=== PATIENT | female | born 1945 | race Caucasian/White ===

== ENCOUNTER → 2016-09-17 | Outpatient (CLI) | payer BC ==
[~2016-09-17] MED LIST: ALBU0.08 INH; ALBUAER19 INH; ASCA500 PO; B-COCAP2 PO; CHOL1000 PO; CLC100 PO; CLX20 PO; CRDCD300 PO; GABA1CAP5 PO; LEVO88TA3 PO; LOSA50TA6 PO; MAGN1TAB16 PO; MULT1CHW42 PO; NORT10CA2 PO; PRLSR20 PO; SOLI10TA2 PO; TRAM-10 PO; XNX25 PO
--- NOTE | 2016-09-17 11:47 | DIAGNOSTIC IMAGING REPORT ---
RENAL ULTRASOUND CLINICAL HISTORY: Hydronephrosis. COMPARISON STUDY: CT of the abdomen and pelvis July 31, 2016. TECHNIQUE: Sonography of the kidneys and the urinary bladder was performed. FINDINGS: The right kidney measures 10.2 x 5.6 x 5.1 cm and the left measures 9.6 x 4.5 x 5.2 cm. There is no hydronephrosis. Renal echogenicity, size and cortical thickness are normal. Neither ureteral jet was identified. The bladder was unremarkable. IMPRESSION: 1. Normal sonographic appearance of the kidneys. No hydronephrosis. 2. Nonvisualization of the ureteral jets. Otherwise, normal appearance of the bladder. Electronically signed by: Rodrigo Colon M.D. 09/17/2016 11:45 AM Dictated Date/Time: 09/17/2016 11:43 AM
== END | disposition home or self-care (01) ==
LOC: C.ULTR 10:43
PROVIDERS: ATTEND Urology
DX: N13.30 Unspecified hydronephrosis (principal)

== ENCOUNTER → 2016-10-30 | Outpatient (CLI) | payer BC ==
[~2016-10-30] MED LIST changes: +OPTIRAY 320 IV PRN
--- NOTE | 2016-10-30 10:00 | DIAGNOSTIC IMAGING REPORT ---
CT ABD/PELVIS IV AND ORAL CONT CLINICAL HISTORY: Ovarian carcinoma. COMPARISON STUDY: 07/31/2016 TECHNIQUE: Following the IV administration of 115 mL of Optiray-320, CT scan of the abdomen and pelvis was performed from the lung bases to the proximal femurs. Images are reviewed in the axial, sagittal, and coronal planes. IV contrast was administered without complication. CT DOSE: FINDINGS: Lower chest: There are bilateral clustered pulmonary nodules. These are most numerous within left lower lobe. The largest measures 14.5 mm. These have been described on prior studies. Liver: The contrast-enhanced liver is normal in size, contour, and attenuation. There is no intrahepatic biliary ductal dilatation. The hepatic veins and portal veins are patent. The previous identified serosal nodule is no longer visualized. Gallbladder: Unremarkable. Spleen: Normal in size and attenuation. Pancreas: Unremarkable. Adrenal glands: Unremarkable. Kidneys: There is a 7 mm right renal cyst. Bowel: There are no transition zones indicate bowel obstruction. There is no evidence of acute diverticulitis. There are no findings to indicate acute appendicitis. There is nonspecific thickening of the gastric cardia. The discrete gastric cardia nodule previously described is difficult to discern. Peritoneum: There is no intraperitoneal free air or abdominal ascites. There is a fat-containing ventral hernia. There is been interval decrease in the size of the scattered peritoneal nodules. Vasculature: The abdominal aorta is normal in course and caliber. Adenopathy: None. Pelvic viscera: There is interval decrease in the size of the cystic right adnexal lesion which currently measures 25 mm. Skeletal structures: No destructive osseous lesions are seen. IMPRESSION: 1. Interval improvement when compared the preceding study 2. Near complete resolution of the previously described small peritoneal nodules 3. Interval resolution of the serosal hepatic implant 4. Interval decrease in the size of the cystic right adnexal lesion which currently measures 25 mm 5. Fat-containing ventral hernia 6. Multiple pulmonary nodules are again visualized. These will be described separately in a thoracic CT report. Electronically signed by: Dom Burgos M.D. 10/30/2016 9:59 AM Dictated Date/Time: 10/30/2016 9:48 AM
--- NOTE | 2016-10-30 10:23 | DIAGNOSTIC IMAGING REPORT ---
CT SCAN OF THE CHEST WITH IV CONTRAST CLINICAL HISTORY: Ovarian cancer follow-up. COMPARISON STUDY: Chest CT scans dated 07/31/2016, 04/08/2015, and 01/11/2007. TECHNIQUE: Following the IV administration of 93 of Optiray 320, CT scan of the chest is performed from the thoracic inlet to the upper abdomen. Images are reviewed in the axial, sagittal, and coronal planes. IV contrast was administered without complication. Automated dose control exposure was utilized. CT DOSE: 488.48 mGy.cm FINDINGS: Thyroid: Imaged portions of the thyroid gland are normal in size and attenuation. Thoracic aorta: There is mild atherosclerotic calcification of the thoracic aorta, which is normal in caliber and demonstrates standard arch 3-vessel anatomy. No dissection is seen. Pulmonary vasculature: The pulmonary trunk is normal in caliber. There are no filling defects identified in the central pulmonary vessels to indicate pulmonary was. Note that this examination was not protocoled for evaluation of the pulmonary arteries. Heart: The heart appears mildly enlarged and is without pericardial effusion. There are scattered coronary artery calcifications. Lungs and pleural spaces: Mild emphysema is noted. There is no airspace consolidation typical for pneumonia. Trace right pleural fluid is observed. Findings suggest previous right-sided pulmonary resection. Scattered calcified granulomas are identified. The trachea and central airways are clear. There is a 1.4 cm left lower lobe nodule seen image #127. This has been present dating back to 2006 and is of doubtful significance. There are numerous additional pulmonary nodules scattered throughout both lungs. A 9 mm left upper lobe nodule is seen on image #111 , a cluster of nodules in the left lower lobe as seen on image #174, and more than 10 additional smaller nodules are present throughout both lungs. Some of these demonstrate a peripheral branching pattern. These are similar appearance to 07/31/2016 examination. Some of these are new from 2007, while others have decreased in size from prior examination. Mediastinum: There is no mediastinal lymphadenopathy. Sonal: Clear. Axillae: There is no axillary lymphadenopathy. Upper abdomen: There is a fat-containing supraumbilical hernia. A small hiatal hernia is noted. A 2.0 cm nodule is again seen in the gastric cardia on image #241. This is less apparent than on the prior examinations due to decompression of the proximal stomach. Bony thorax: The skeletal structures are osteopenic. Degenerative changes noted throughout the thoracic spine. No lytic or blastic lesions are identified. There are mild chronic compression deformities of T1, T5, T7, and L1. IMPRESSION: 1. There has been no significant change in the appearance of numerous waxing and waning pulmonary nodules which have been seen over several examinations dating back to 2006. Several of these lesions demonstrate a branching appearance, and the appearance suggest a chronic infectious/inflammatory process. Metastatic disease is considered less likely. 2. There is no airspace consolidation typical for pneumonia. Trace pleural fluid is noted at the right lung base. 3. Mild emphysema is identified. Postoperative change is suggested in the right lung. Correlation with the patient's surgical history be required. 4. A 2.0 cm nodule in the gastric cardia is likely unchanged. 5. Additional changes as above. Electronically signed by: Tez Putnam M.D. 10/30/2016 10:22 AM Dictated Date/Time: 10/30/2016 9:59 AM
== END | disposition home or self-care (01) ==
LOC: C.CTS 08:36
PROVIDERS: ATTEND Nurse Practitioner
DX: C56.1 Malignant neoplasm of right ovary (principal); R19.09 Other intra-abdominal and pelvic swelling, mass and lump; K43.9 Ventral hernia without obstruction or gangrene; R91.8 Other nonspecific abnormal finding of lung field; K31.89 Other diseases of stomach and duodenum

== ENCOUNTER → 2016-11-02 | Outpatient (CLI) | payer BC ==
[~2016-11-02] MED LIST changes: -OPTIRAY 320 IV PRN
--- NOTE | 2016-11-02 18:36 | ECHOCARDIOGRAM REPORT ---
*NOTICE TO RECEIVING [employer] This information is strictly Confidential and protected under [place] law. [place] law prohibits you from making any further disclosure of this information unless further disclosure is expressly permitted by the written consent of the person to whom it pertains or is authorized by law. A general authorization for the release of medical or other information is not sufficient for this purpose. Hospital accepts no responsibility if the information is made available to any other person, INCLUDING THE PATIENT. Interpretation Summary * Name: RADHA TALBERT Study Date: 11/02/2016 12:58 PM BP: 190/96 mmHg * Patient Location: [facility] HR: 78 * : 1945 (M/d/yyyy) Gender: Female Height: 61 in * Age: 71 yrs Ethnicity: CA Weight: 140 lb * Ordering Physician: Mitch Palafox * Referring Physician: Mitch Palafox D.O. * Performed By: Parvin Capm RDCS * * Reason For Study: NEOPLASM, OVARIAN CA * BSA: 1.6 m2 * History: OVARIAN CA * -- Conclusions -- * 1. Normal left ventricular size and systolic function. EF 55%. No regional wall motion abnormalities. No left ventricular hypertrophy. Type 1 diastolic dysfunction. * 2. Sclerotic aortic valve without significant stenosis. * 3. No significant change from prior study on 05/16/2016. Procedure Details * A complete two-dimensional transthoracic echocardiogram was performed (2D, M-mode, Doppler and color flow Doppler). Left Ventricle * Normal left ventricular size and systolic function. EF 55%. No regional wall motion abnormalities. No left ventricular hypertrophy. Type 1 diastolic dysfunction. Right Ventricle * The right ventricle is normal in size and function. * The right ventricular systolic function is normal as assessed by tricuspid annular plane systolic excursion (TAPSE) (normal >1.5 cm). Atria * The left atrial size is normal. * Right atrial size is normal. * There is no evidence of atrial septal defect, but resolution does not allow assessment for a patent foramen ovale. Mitral Valve * The mitral valve leaflets appear normal. There is no evidence of stenosis, fluttering, or prolapse. * There is mild to moderate mitral annular calcification. * There is no mitral regurgitation noted. Tricuspid Valve * The tricuspid valve is normal in structure and function. * There is no tricuspid stenosis. * Significant tricuspid regurgitation is absent. Aortic Valve * The aortic valve is trileaflet. * Sclerotic aortic valve without significant stenosis. * No aortic regurgitation is present. Pulmonic Valve * The pulmonary valve is inadequately visualized, but the Doppler data is adequate for interpretation. * There is no pulmonic valvular stenosis. * There is no significant pulmonary regurgitation. Great Vessels * The aortic root is normal size. * Aortic arch of normal dimension. Pericardium/Pleural * There is no pericardial effusion. Great Vessels * Normal inferior vena cava size and collapsability with sniff indicates a normal right atrial pressure of 3 mmHg Left Ventricular Diastolic Function * Grade I diastolic dysfunction, (abnormal relaxation pattern). MMode 2D Measurements and Calculations IVSd 0.90 cm IVSs 1.3 cm LVIDd 5.0 cm LVIDs 3.5 cm LVPWd 1.0 cm LVPWs 1.7 cm IVS/LVPW 0.87 FS 29.8 % EDV(Teich) 118.6 ml ESV(Teich) 51.4 ml EF(Teich) 56.7 % EDV(cubed) 125.5 ml ESV(cubed) 43.4 ml EF(cubed) 65.4 % % IVS thick 40.4 % % LVPW thick 61.8 % LV mass(C)d 175.3 grams LV mass(C)dI 108.0 grams/m\S\2 LV mass(C)s 189.1 grams LV mass(C)sI 116.5 grams/m\S\2 SV(Teich) 67.3 ml SI(Teich) 41.4 ml/m\S\2 SV(cubed) 82.1 ml SI(cubed) 50.6 ml/m\S\2 Ao root diam 3.0 cm Ao root area 6.9 cm\S\2 LA dimension 3.3 cm LA/Ao 1.1 LVAd ap4 29.3 cm\S\2 LVLd ap4 7.5 cm EDV(MOD-sp4) 96.3 ml EDV(sp4-el) 97.5 ml LVAs ap4 18.7 cm\S\2 LVLs ap4 6.8 cm ESV(MOD-sp4) 45.8 ml ESV(sp4-el) 43.7 ml EF(MOD-sp4) 52.5 % EF(sp4-el) 55.2 % LVAd ap2 25.5 cm\S\2 LVLd ap2 7.1 cm EDV(MOD-sp2) 76.1 ml EDV(sp2-el) 77.5 ml LVAs ap2 16.1 cm\S\2 LVLs ap2 6.3 cm ESV(MOD-sp2) 35.7 ml ESV(sp2-el) 34.9 ml EF(MOD-sp2) 53.1 % EF(sp2-el) 55.0 % LVLd %diff -4.33 % EDV(MOD-bp) 91.1 ml LVLs %diff -9.90 % ESV(MOD-bp) 42.0 ml EF(MOD-bp) 53.9 % SV(MOD-sp4) 50.5 ml SI(MOD-sp4) 31.1 ml/m\S\2 SV(MOD-sp2) 40.4 ml SI(MOD-sp2) 24.9 ml/m\S\2 SV(MOD-bp) 49.1 ml SI(MOD-bp) 30.3 ml/m\S\2 SV(sp4-el) 53.8 ml SI(sp4-el) 33.1 ml/m\S\2 SV(sp2-el) 42.6 ml SI(sp2-el) 26.2 ml/m\S\2 Doppler Measurements and Calculations MV E max jorge 75.6 cm/sec MV A max jorge 118.9 cm/sec MV E/A 0.64 MV dec time 0.27 sec Ao V2 max 178.9 cm/sec Ao max PG 12.8 mmHg Ao max PG (full) 9.1 mmHg Ao V2 mean 108.8 cm/sec Ao mean PG 5.6 mmHg Ao mean PG (full) 3.8 mmHg Ao V2 VTI 38.8 cm LV V1 max PG 3.7 mmHg LV V1 mean PG 1.8 mmHg LV V1 max 95.8 cm/sec LV V1 mean 60.3 cm/sec LV V1 VTI 23.2 cm SV(Ao) 266.5 ml SI(Ao) 164.2 ml/m\S\2 TV E max jorge 41.4 cm/sec
== END | disposition home or self-care (01) ==
LOC: C.CPL 12:16
PROVIDERS: ATTEND Internal Medicine Hematology & Oncology
DX: C56.1 Malignant neoplasm of right ovary (principal); Z11.59 Encounter for screening for other viral diseases

== ENCOUNTER → 2016-11-02 | Outpatient (CLI) | payer BC | END | disposition home or self-care (01) | LOC: C.LAB 17:11 | PROVIDERS: ATTEND Family Medicine | DX: Z11.59 Encounter for screening for other viral diseases (principal) ==

== ENCOUNTER → 2016-11-12 | Outpatient (CLI) | payer BC ==
--- NOTE | 2016-11-12 16:38 | MAMMOGRAPHY REPORT ---
BILATERAL DIGITAL SCREENING MAMMOGRAM WITH CAD: 11/12/2016 CLINICAL HISTORY: Routine screening. Patient has no complaints. TECHNIQUE: Bilateral CC and MLO views were obtained. Current study was also evaluated with a Comput er Aided Detection (CAD) system. COMPARISON: Comparison is made to exams dated: 09/19/2015 mammogram, 09/16/2014 mammogram, 09/08/2012 ma mmogram, 09/06/2011 mammogram, 09/15/2013 mammogram, and 09/03/2011 mammogram - [facility] nter. BREAST COMPOSITION: The tissue of both breasts is heterogeneously dense, which may obscure small ma sses. FINDINGS: There are mild vascular calcifications in the breasts. A stable metallic biopsy marker i n the central left breast. Stable asymmetry in the central left breast and in the medial left breas t. Punctate microcalcifications scattered bilaterally are stable compared to prior exams. No new john spicious mass, architectural distortion or cluster of microcalcifications is seen. IMPRESSION: ACR BI-RADS CATEGORY 2: BENIGN There is no mammographic evidence of malignancy. A 1 year screening mammogram is recommended. The p atient will receive written notification of the results. Approximately 10% of breast cancers are not detected with mammography. A negative mammographic repor t should not delay biopsy if a clinically suggestive mass is present. Brenda Garzon M.D. ay/:11/12/2016 16:21:13 Stores Clerk: Wandy PATEL)(Malcolm), [facility] letter sent: Normal 1/2 BI-RADS Code: ACR BI-RADS Category 2: Benign
== END | disposition home or self-care (01) ==
LOC: C.MAMM 11:24
PROVIDERS: ATTEND Obstetrics & Gynecology
DX: Z12.31 Encounter for screening mammogram for malignant neoplasm of breast (principal)

== ENCOUNTER → 2016-12-03 | Outpatient (CLI) | payer BC ==
[2016-12-03 14:40] LABS: HEMATOCRIT 40.6 % (37-47)
[2016-12-03 15:24] LABS: ALT/SGPT 21 U/L (12-78); AST/SGOT 13 U/L (15-37); BLOOD UREA NITROGEN 13 mg/dl (7-18); BUN/CREATININE RATIO 16.7 (10-20); CALCIUM 9.2 mg/dl (8.5-10.1); CARBON DIOXIDE 31 mmol/L (21-32); CHLORIDE 105 mmol/L (98-107); GLUCOSE 91 mg/dl (70-99); POTASSIUM 4.1 mmol/L (3.5-5.1); SODIUM 141 mmol/L (136-145)
[2016-12-03 15:37] LABS: ALB/GLOB RATIO 0.9 (0.9-2); ALKALINE PHOSPHATASE 75 U/L (45-117); THYROID STIMULATING HORMONE 0.764 uIu/ml (0.300-4.500)
[2016-12-03 17:35] LABS: RATIO 185.2 mcg/mg (0-30.0)
[2016-12-04 06:39] LABS: ESTIMATED AVERAGE GLUCOSE 97 mg/dl; HA1C FLAG Normal (Normal)
== END | disposition home or self-care (01) ==
LOC: C.LAB1850 12:49
PROVIDERS: ATTEND Nurse Practitioner Adult Health
DX: R73.01 Impaired fasting glucose (principal); R73.09 Other abnormal glucose; E03.9 Hypothyroidism, unspecified

== ENCOUNTER → 2016-12-24 | Outpatient (CLI) | payer BC ==
[~2016-12-24] MED LIST changes: +OPTIRAY 320 IV PRN
--- NOTE | 2016-12-24 14:27 | DIAGNOSTIC IMAGING REPORT ---
CHEST CT WITH CONTRAST CT DOSE: 745.36 mGycm HISTORY: Ovarian carcinoma OVARIAN CA F/U SCAN TECHNIQUE: Multiaxial CT images of the chest were performed following the intravenous administration of contrast. COMPARISON: None. FINDINGS: Multiple small parenchymal nodules unchanged from the prior study. No new or interval finding. Hilar and mediastinal regions are unremarkable. Limited evaluation the upper abdomen is unremarkable. IMPRESSION: Stable examination including diffuse parenchymal nodularity. No new or interval finding. Electronically signed by: Trent Goins M.D. 12/24/2016 2:25 PM Dictated Date/Time: 12/24/2016 2:21 PM
--- NOTE | 2016-12-24 14:37 | DIAGNOSTIC IMAGING REPORT ---
CT ABD/PELVIS IV AND ORAL CONT CLINICAL HISTORY: Ovarian carcinoma COMPARISON STUDY: 10/30/2016 TECHNIQUE: Following the IV administration of 119 mL of Optiray-320, CT scan of the abdomen and pelvis was performed from the lung bases to the proximal femurs. Images are reviewed in the axial, sagittal, and coronal planes. IV contrast was administered without complication. CT DOSE: FINDINGS: Lower chest: There are areas of clustered tree-in-bud nodularity within both lower lobes, similar to the preceding study. A postinflammatory etiology is favored. Liver: The contrast-enhanced liver is normal in size, contour, and attenuation. There is no intrahepatic biliary ductal dilatation. The hepatic veins and portal veins are patent. Gallbladder: Unremarkable. Spleen: Normal in size and attenuation. Pancreas: Unremarkable. Adrenal glands: Unremarkable. Kidneys: There are multiple renal hypodensities measuring up to 6 mm in diameter. These likely represent cysts. Bowel: There are no transition zones indicate bowel obstruction. There is no evidence of acute appendicitis. There is no evidence of acute diverticulitis. Peritoneum: There is no ascites. There is no free air. There is a fat-containing umbilical hernia. There is mild infiltration and nodularity of the omentum, suspicious for subtle medial blastic involvement. Vasculature: The abdominal aorta is normal in course and caliber. Adenopathy: None. Pelvic viscera: There is a stable 26 mm right adnexal cystic lesion. Skeletal structures: No destructive osseous lesions are seen. IMPRESSION: 1. Persistent clustered lower lobe pulmonary tree-in-bud nodularity, likely postinflammatory 2. Stable 25 mm cystic right adnexal lesion 3. Fat-containing ventral hernia 4. Subtle infiltration and nodularity of the omentum/anterior peritoneum. The findings are consistent with the patient's known history of peritoneal carcinomatosis. The findings are relatively stable. Electronically signed by: Dom Burgos M.D. 12/24/2016 2:36 PM Dictated Date/Time: 12/24/2016 2:28 PM
== END | disposition home or self-care (01) ==
LOC: C.CTS 13:27
PROVIDERS: ATTEND Internal Medicine Hematology & Oncology
DX: C56.1 Malignant neoplasm of right ovary (principal)

== ENCOUNTER → 2017-02-26 | Outpatient (CLI) | payer BC ==
[~2017-02-26] MED LIST changes: -OPTIRAY 320 IV PRN
--- NOTE | 2017-02-26 12:43 | DIAGNOSTIC IMAGING REPORT ---
(CHEST) THORAX WITH HISTORY: 71 years Female OVARIAN cancer follow-up exam. Restaging. COMPARISON: CT chest 12/24/2016, 10/30/2016, 01/11/2007 TECHNIQUE: Multiple axial CT images of the chest were obtained following the intravenous administration of 93 mL Optiray 320. FINDINGS: Thyroid is homogeneous. No new adenopathy of the thorax is seen. Heart is normal in size. Thoracic aorta appears normal in course and caliber. There is no pneumothorax or pleural effusion. Evaluation of the lung bases is limited secondary to respiratory motion. There is unchanged right hemidiaphragmatic elevation. Noncalcified pulmonary nodules throughout the bilateral lungs and multilobar distribution are again seen. For example, lobulated pulmonary nodule of the superior segment left lower lobe measures 1.2 x 1.4 cm, previously 1.4 x 1.1 cm. 9 mm nodule left upper lobe previously measured 9 mm. Several of these nodules are branching with associated tree-in-bud nodularity suggesting endobronchial disease. There are postsurgical changes of the right lung. Mild centrilobular emphysema noted. The proximal bronchial tree is patent. No new pulmonary nodules are identified. Imaged upper abdominal structures are within normal limits. Soft tissues are unremarkable. There is unchanged patchy bony sclerosis involving several mid thoracic levels which appears unchanged. Compression deformity of L1 is unchanged. IMPRESSION: 1. Stable exam with redemonstration of multiple noncalcified pulmonary nodules in a multilobar distribution bilaterally. Several of these pulmonary nodules are again noted to demonstrate branching morphology with areas of tree-in-bud nodularity suggesting endobronchial spread of disease/bronchiolitis. Underlying metastatic disease would also be in the differential. 2. No new adenopathy or pulmonary nodules identified. 3. Additional incidental findings as above. The above report was generated using voice recognition software. It may contain grammatical, syntax or spelling errors. Electronically signed by: Braden Millan M.D. 02/26/2017 12:42 PM Dictated Date/Time: 02/26/2017 12:32 PM
--- NOTE | 2017-02-26 12:59 | DIAGNOSTIC IMAGING REPORT ---
ABD/PELVIS IV AND ORAL CONT HISTORY: 71 years Female ovarian cancer follow-up study. This is for restaging. COMPARISON: CT abdomen and pelvis 12/24/2016 TECHNIQUE: Multiple axial CT images of the abdomen and pelvis were obtained following the intravenous administration of 93 mL Optiray 320. Oral contrast was also administered. FINDINGS: Areas of scattered tree-in-bud nodularity and noncalcified pulmonary nodules within the lung bases are again seen suggesting infectious bronchiolitis. Inferior cardiac chambers are unremarkable. There is no pneumoperitoneum. Liver, spleen, gallbladder, pancreas and adrenal glands are within normal limits. Low attenuating lesions of the renal parenchyma measuring up to 6 mm on the right to small to characterize however suggests cysts and appear unchanged. No renal calculi or hydronephrosis. Urinary bladder is unremarkable. Uterus is age-appropriate. Cystic lesion of the right adnexum is seen, 2.4 x 2.2 cm which is unchanged. There is trace free pelvic fluid noted. Abdominal aorta is normal in course and caliber with mild/moderate atherosclerotic plaquing. There is no bulky retroperitoneal adenopathy identified. There is wall thickening of the distal esophagus with nodularity in the region of the gastric cardia, unchanged. There is no bowel obstruction. There is redemonstration of nodularity of the omentum/peritoneum, notably within the left upper and central abdomen which appears progressed from comparison study dated 12/24/2016 with scattered areas of loculated ascites within the upper abdomen. Fat containing supraumbilical ventral abdominal wall hernia is seen with diastases of 3.8 cm. There is diastases recti. Vertebral body sclerosis involving several midthoracic levels again seen with unchanged compression deformity of the L1 vertebral body. Severe facet arthropathy seen at several levels. IMPRESSION: 1. Progression of peritoneal and omental carcinomatosis within the upper abdomen now with areas of minimal loculated ascites. 2. Unchanged circumferential wall thickening of the distal esophagus with nodularity of the gastric cardia. This could be correlated with endoscopy if clinically indicated. 3. Fat filled supraumbilical ventral abdominal wall hernia. 4. Unchanged 2.4 cm cystic lesion of the right adnexum. 5. Tree-in-bud nodularity of the lung bases again seen suggesting bronchiolitis as discussed on comparison chest CT of same day. The above report was generated using voice recognition software. It may contain grammatical, syntax or spelling errors. Electronically signed by: Braden Millan M.D. 02/26/2017 12:58 PM Dictated Date/Time: 02/26/2017 12:48 PM
== END | disposition home or self-care (01) ==
LOC: C.CTS 11:39
PROVIDERS: ATTEND Internal Medicine Hematology & Oncology
DX: C56.1 Malignant neoplasm of right ovary (principal)

== ENCOUNTER → 2017-09-06 | Outpatient (CLI) | payer BC ==
[~2017-09-06] MED LIST changes: +OPTIRAY 320 IV PRN
--- NOTE | 2017-09-06 12:56 | DIAGNOSTIC IMAGING REPORT ---
CT SCAN OF THE CHEST WITH IV CONTRAST CLINICAL HISTORY: Ovarian cancer follow-up. COMPARISON STUDY: Chest CT scans dated 06/13/2017 and 01/11/2007. TECHNIQUE: Following the IV administration of 93 of Optiray 320, CT scan of the chest is performed from the thoracic inlet to the upper abdomen. Images are reviewed in the axial, sagittal, and coronal planes. IV contrast was administered without complication. Automated dose control exposure was utilized. CT DOSE: 960.87 mGy.cm FINDINGS: Thyroid: Imaged portions of the thyroid gland are normal in size and attenuation. Thoracic aorta: There is mild atherosclerotic calcification of the thoracic aorta, which is normal in caliber and demonstrates standard arch 3-vessel anatomy. No dissection is seen. Pulmonary vasculature: The pulmonary trunk is normal in caliber. There are no filling defects identified in the central pulmonary vessels to indicate pulmonary was. Note that this examination was not protocoled for evaluation of the pulmonary arteries. Heart: The heart is top normal in size and there is trace pericardial effusion. There are scattered coronary artery calcifications. Lungs and pleural spaces: Mild emphysema is noted. There is no airspace consolidation typical for pneumonia. There are trace pleural effusions. Findings suggest previous right-sided pulmonary resection. Scattered calcified granulomas are identified. The trachea and central airways are clear. Numerous (greater than 20) noncalcified pulmonary pulmonary nodules are overall similar appearance to 06/13/2017 examination. Several of these demonstrate a branching configuration. The largest is seen in the left lower lobe on image #110 and measures 1.5 cm. Mediastinum: There is no mediastinal lymphadenopathy. Sonal: Clear. Axillae: There is no axillary lymphadenopathy. Upper abdomen: A small hiatal hernia is noted. A 2.0 cm nodule is again seen in the gastric cardia on image #216. Upper abdominal ascites is noted. Peritoneal implants are seen below the left hemidiaphragm. Bony thorax: The skeletal structures are osteopenic. Degenerative change is noted throughout the thoracic spine. No lytic or blastic lesions are identified. There are mild chronic compression deformities of T1, T5, T7, and L1. IMPRESSION: 1. There has been no significant change in the appearance of numerous waxing and waning pulmonary nodules which have been seen over examinations dating back to 2006. Several of these lesions demonstrate a branching appearance, and the appearance suggest a chronic infectious/inflammatory process. Metastatic disease is considered less likely. 2. There is no airspace consolidation typical for pneumonia. Trace pleural effusions are identified. 3. Mild emphysema is identified. Postoperative change is suggested in the right lung. Correlation with the patient's surgical history be required. 4. A 2.0 cm nodule in the gastric cardia is unchanged. 5. Ascites is seen in the upper abdomen and there is evidence of peritoneal carcinomatosis. 6. Additional findings as above. Electronically signed by: Tez Putnam M.D. 09/06/2017 12:55 PM Dictated Date/Time: 09/06/2017 12:45 PM
--- NOTE | 2017-09-06 13:04 | DIAGNOSTIC IMAGING REPORT ---
ABD/PELVIS IV AND ORAL CONT CT DOSE: HISTORY: Ovarian carcinoma OVARIAN CA TECHNIQUE: Multiaxial CT images of the abdomen and pelvis were performed following the use of intravenous and oral contrast. A dose lowering technique was utilized adhering to the principles of ALARA. COMPARISON STUDY: 06/13/2017 FINDINGS: Potential progressive basilar pulmonary nodularity. Reference is made to CT chest for definitive comparison purposes. Interval development of and/or progressive perihepatic perisplenic and upper abdominal ascites. Moderately progressive carcinomatosis. Unchanging anterior ventral hernia with contained loop of bowel. This is a nonobstructive finding. Kidneys demonstrate several small cysts but are negative for hydronephrosis. Nonobstructive bowel pattern. Moderately progressive pelvic ascites. 3 cm right ovarian cyst. Slightly progressive metastatic mesenteric adenopathy. Stable hypodensity subdiaphragmatic region right hepatic lobe. Partial bladder prolapse unchanged in the prior study. IMPRESSION: 1. Findings suggestive of progressive metastatic disease throughout the abdomen and pelvis. 2. Moderately progressive volume of abdominal and pelvic ascites. 3. Moderately progressive peritoneal carcinomatosis and to a lesser extent adenopathy within the abdomen and pelvis. 4. Probable progressive basilar pulmonary nodularity The above report was generated using voice recognition software. It may contain grammatical, syntax or spelling errors. Electronically signed by: Trent Goins M.D. 09/06/2017 1:03 PM Dictated Date/Time: 09/06/2017 12:47 PM
== END | disposition home or self-care (01) ==
LOC: C.CTS 10:50
PROVIDERS: ATTEND Internal Medicine Hematology & Oncology
DX: C56.1 Malignant neoplasm of right ovary (principal); R18.8 Other ascites; C78.6 Secondary malignant neoplasm of retroperitoneum and peritoneum

== ENCOUNTER 2017-10-02 09:44 | Inpatient (IN) | payer BC, OTHER ==
[~2017-10-02] VITALS: Ht 154.9 cm; Wt 64.8 kg
[~2017-10-02 09:44] MED LIST changes: +GABA-1220 PO; -GABA1CAP5 PO; -OPTIRAY 320 IV PRN
[2017-10-02 09:53] VITALS: Ht 154.9 cm; Wt 64.8 kg
[2017-10-02] MEDS ORDERED: SODIUM CHLORIDE 0.9% 1000ML 1,000 ML IV STA ×2 (10:25)
[2017-10-02] MEDS ORDERED: POTA10PO PO (10:28)
[2017-10-02] MEDS ORDERED: NYSTOIN5 TOP (10:28)
[2017-10-02] MEDS ORDERED: TRAM-10 PO (10:28)
[2017-10-02] MEDS ORDERED: ALPR-411 PO (10:28)
[2017-10-02] MEDS ORDERED: VNTHFA/IN INH (10:28)
[2017-10-02] MEDS ORDERED: DILT-117 PO (10:28)
[2017-10-02] MEDS ORDERED: PRLSR20 PO (10:28)
[2017-10-02] MEDS ORDERED: CALC-348 PO (10:28)
[2017-10-02] MEDS ORDERED: DICL1GEL12 TOP (10:28)
[2017-10-02] MEDS ORDERED: B-COTAB18 PO (10:28)
[2017-10-02] MEDS ORDERED: MISCCAP80 PO (10:28)
[2017-10-02] MEDS ORDERED: SENN-61 PO (10:28)
[2017-10-02] MEDS ORDERED: DOCU-94 PO (10:28)
[2017-10-02] MEDS ORDERED: DTRSR/2 PO (10:28)
[2017-10-02] MEDS ORDERED: LOSA1TAB38 PO (10:28)
[2017-10-02] MEDS ORDERED: GABA-1220 PO (10:28)
[2017-10-02] MEDS ORDERED: INDA2.5T PO (10:28)
[2017-10-02] MEDS ORDERED: NORT10CA2 PO (10:28)
[2017-10-02] MEDS ORDERED: CITA20TA4 PO (10:28)
[2017-10-02] MEDS ORDERED: CHOL1000 PO (10:28)
[2017-10-02] MEDS ORDERED: OMEG10007 PO (10:28)
[2017-10-02] MEDS ORDERED: ASCO500T16 PO (10:28)
[2017-10-02] MEDS ORDERED: MAGNTAB10 PO (10:28)
[2017-10-02] MEDS ORDERED: LEVO88TA3 PO (10:28)
[2017-10-02] MEDS ORDERED: MULT-506 PO (10:28)
[2017-10-02] MEDS ORDERED: VITA1TAB12 PO (10:28)
[2017-10-02] MEDS ORDERED: ALBINS/ INH (10:28)
[2017-10-02] MEDS ORDERED: FLUT0.15 NAE (10:28)
[2017-10-02] MEDS ORDERED: TRMCR130WC TOP (10:31)
[2017-10-02] MEDS ORDERED: ONDA-63 PO (10:31)
[2017-10-02] MEDS ORDERED: DILT300C21 PO (10:31)
--- NOTE | 2017-10-02 10:37 | EMERGENCY ROOM VISIT NOTE ---
ED Visit Note First contact with patient: 10:00 Patient was seen by our PA/HOOD FITTER. I was involved in the patient's care and did evaluate the patient myself. I was involved in the care throughout the ER stay. The patient presents with concerns for constipation and/or a bowel obstruction. She does not really have pain, there has been no vomiting. She does feel somewhat bloated. Laboratory testing and imaging is currently pending.
[2017-10-02 11:39] LABS: BASO % 0.2 %; BASO ABS # 0.01 K/uL (0-0.2); EOS % 0.8 %; EOS ABS # 0.04 K/uL (0-0.5); HEMATOCRIT 29.1 % (37-47); HEMOGLOBIN 9.7 g/dL (12.0-16.0); IG# 0.02 K/uL (0.00-0.02); LYMPH % 10.8 %; LYMPH ABS # 0.51 K/uL (1.2-3.4); MEAN CELL VOLUME 92.4 fL (80-100); MEAN CORPUSCULAR HEMOGLOBIN 30.8 pg (25-34); MEAN CORPUSCULAR HGB CONC 33.3 g/dl (32-36); MONO % 2.5 %; MONO ABS # 0.12 K/uL (0.11-0.59); NEUT % 85.3 %; NEUT ABS # 4.02 K/uL (1.4-6.5); PLATELET COUNT 477 K/uL (130-400); RED CELL DISTRIBUTION WIDTH CV 14.5 % (11.5-14.5); RED CELL DISTRIBUTION WIDTH SD 47.6 fL (36.4-46.3); WHITE BLOOD COUNT 4.72 K/uL (4.8-10.8)
--- NOTE | 2017-10-02 11:43 | DIAGNOSTIC IMAGING REPORT ---
ABDOMEN 2VIEW W/PA CHEST RTN CLINICAL HISTORY: EVAL BOWEL OBSTRUCTION obstruction COMPARISON STUDY: CT 09/06/2017 FINDINGS: Chronic elevation right hemidiaphragm. Stable parenchymal nodularity left hemithorax. No acute infiltrate. Bowel pattern is nonobstructive. Moderate degenerative change of the lumbar spine. IMPRESSION: 1. Nonobstructive bowel pattern. 2. Stable parenchymal nodularity of the lungs. 3. No acute process. The above report was generated using voice recognition software. It may contain grammatical, syntax or spelling errors. Electronically signed by: Trent Gonis M.D. 10/02/2017 11:41 AM Dictated Date/Time: 10/02/2017 11:40 AM
[2017-10-02 11:59] LABS: ALBUMIN 3.4 gm/dl (3.4-5.0); CALCIUM 9.2 mg/dl (8.5-10.1); CREATININE 1.12 mg/dl (0.60-1.20); POTASSIUM 3.4 mmol/L (3.5-5.1)
[2017-10-02 12:02] LABS: TOTAL PROTEIN 7.2 gm/dl (6.4-8.2)
[2017-10-02] MEDS ORDERED: OPTIRAY 320 IV PRN (12:30)
--- NOTE | 2017-10-02 12:59 | DIAGNOSTIC IMAGING REPORT ---
CT ABD/PELVIS IV CONTRAST ONLY CLINICAL HISTORY: BLOATING, CONSTIPATION OVARIAN CARCINOMA. POSSIBLE BOWEL OBSTRUCTION. COMPARISON STUDY: 09/06/2017 TECHNIQUE: Following the IV administration of 119 mL of Optiray-320, CT scan of the abdomen and pelvis was performed from the lung bases to the proximal femurs. Images are reviewed in the axial, sagittal, and coronal planes. IV contrast was administered without complication. A dose lowering technique was utilized adhering to the principles of ALARA. CT DOSE: 415.85 mGy.cm FINDINGS: Lower chest: There is elevation the right hemidiaphragm. There is a 15 mm left lower lobe pulmonary nodule. Additional smaller left lower lobe pulmonary nodules are evident. Liver: There is a stable 12 mm hypodensity within the right hepatic dome. Gallbladder: Unremarkable. Spleen: Normal in size and attenuation. Pancreas: Unremarkable. Adrenal glands: Unremarkable. Kidneys: Subcentimeter renal hypodensities are felt to represent cysts. There is mild fullness of each renal collecting system. Bowel: There are multiple fluid-filled colonic bowel loops. There is an umbilical hernia containing a small knuckle of transverse colon. Sigmoid colon appears decompressed. A colonic obstruction at the sigmoid level cannot be excluded Peritoneum: There is persistent ascites. As a 12 mm nodule abutting the serosal surface of the liver near the dome the diaphragm. This is suspicious for a peritoneal implant. Multiple omental implants are visualized. Vasculature: The abdominal aorta is normal in course and caliber. Adenopathy: None. Pelvic viscera: There is a 2.6 cm cystic right adnexal mass. There is a 12 cm cystic left adnexal mass. This 12 cm mass demonstrates mural nodularity suspicious for neoplasm. The uterus appears surgically absent Skeletal structures: No destructive osseous lesions are seen. IMPRESSION: 1. Fluid-filled colon. The sigmoid colon appears decompressed and a colonic obstruction at the sigmoid level cannot be excluded 2. Peritoneal and abdominal carcinomatosis 3. 2.6 cm cystic right adnexal mass and 12 cm cystic left adnexal mass demonstrating mural nodularity 4. Ascites 5. Persistent lower lobe pulmonary nodularity 6. Ventral hernia containing a knuckle of transverse colon Electronically signed by: Dom Burgos M.D. 10/02/2017 12:58 PM Dictated Date/Time: 10/02/2017 12:43 PM
--- NOTE | 2017-10-02 13:23 | EMERGENCY ROOM VISIT NOTE ---
"History First contact with patient: 10:00 Chief Complaint: GI ASSESSMENT Stated Complaint: POSSIBLE BOWEL BLOCKAGE W/ OVARIAN CA History of Present Illness Patient is a 72-year-old white female with past medical history significant for metastatic ovarian cancer who presents emergency department for evaluation of abdominal bloating, loose stools, and concern for constipation or any bowel obstruction. Patient reports that she recently finished a 21 day cycle of an oral chemotherapeutic agent. She had noted some diarrhea last week, so she held her typical stool softeners and senna. She then began to note some lower abdominal discomfort, bloating and pressure concerning for constipation. She had a lot of fecal urgency, and felt like she could pass stool, but was unable to. She began to make some dietary modifications including eating prunes and apricots, she started taking extra stool softeners and senna, but this was unsuccessful in providing any significant bowel movements. She only notes that she was passing liquid stools on occasion. She spoke with the cancer center, they recommended MiraLAX and magnesium citrate. She also tried a mini enema at home. She has been doing the MiraLAX for a couple of days, and did mag citrate yesterday morning, again with a lot of abdominal gurgling, but no successful bowel movement. Today, she notes that she had several large liquid bowel movements, she reports 4 in total, that helped slightly to alleviate the lower abdominal pressure. She relates it to bowel movements similar to a colonoscopy prep. She again spoke with the cancer center and they referred her to the emergency department for further care and evaluation. She does not have any significant pain. She has been only slightly nauseous, and has not vomited. She has been eating normally for her, she has to eat small meals as she cannot tolerate larger meals any longer. She has never had a bowel obstruction. She does have external hemorrhoids and has noticed some slight bright red blood with straining. She denies any urinary symptoms other than some external burning with irritation because she feels that she is chafed and sore in the perineal area. Review of Systems Review of systems as per HPI. All other systems reviewed were negative. 10 systems reviewed. Past Medical/Surgical History Medical Problems: (1) Abdominal pain, left lower quadrant (2) Anemia (3) Bilateral pleural effusion (4) Bronchitis (5) Bronchospasm (6) Chemotherapy-induced nausea (7) Dehydration (8) Diabetes (9) Encounter for removal of sutures (10) Encounter for removal of sutures (11) GI bleed (12) Hematemesis (13) History of ovarian cancer (14) HTN (hypertension) (15) Laceration (16) Leukocytosis (17) Ovarian cancer (18) Pneumonia (19) Vomiting (20) Vomiting Surgical Problems: (1) S/P CHELSEY-BSO Electronic medical records are reviewed and summarized as above/below. See Problem List. Family History Cancer Diabetes mellitus Hypertension Social History Smoking Status: Never Smoker Marital Status: single Housing Status: lives alone Occupation Status: retired Current/Historical Medications Scheduled Ascorbic Acid (Ascorbic Acid), 500 MG PO DAILY B-Complex Vitamins (Vitamin B Complex), 1 TAB PO DAILY Calcium Citrate-Vitamin D (Florencio-Citrate Plus Vitamin), 1 TAB PO TID Cholecalciferol (Vitamin D3), 1 TAB PO DAILY Citalopram Hydrobromide (Citalopram Hydrobromide), 1 TAB PO DAILY Diltiazem Hcl Coated Beads (Cartia Xt), 1 CAP PO DAILY Docusate Sodium (Colace), 2 CAP PO DAILY Fish Oil (Hudson-3), 1 CAP PO BID Fluticasone Propionate (Nasal) (Flonase Allergy Relief), 2 SPRAYS ASAD DAILY Gabapentin (Neurontin), 400 MG PO TID Indapamide (Indapamide), 1 TAB PO DAILY Levothyroxine Sodium (Levothyroxine Sodium), 1 TAB PO DAILY Losartan Potassium (Cozaar), 100 MG PO DAILY Magnesium Oxide (Mg Supplement (Mag-200), 1 TAB PO TID Multivitamin (Multivitamin), 1 TAB PO DAILY Nortriptyline (Pamelor), 10 MG PO DAILY Omeprazole (Prilosec), 20 MG PO DAILY Ondansetron (Ondansetron HCl), 1 TAB PO UD Potassium Chloride (Potassium Chloride), 1 DOSE PO DAILY Probiotic Product (Probiotic), 1 CAP PO DAILY Tolterodine Tartrate (Detrol LA), 1 CAP PO QPM Triamcinolone Acet (Aristocort 0.1%), 1 APPLN TOP UD Vitamin E (Vitamin E), 1 TAB PO DAILY Scheduled PRN Albuterol Hfa (Ventolin Hfa), 2-4 PUFFS INH Q6H PRN for SOB/Wheezing Albuterol Sulf (Proventil 0.083% 2.5MG/3ML), 2.5 MG INH QID PRN for Wheezing Alprazolam (Xanax), 0.25 MG PO BID PRN for Anxiety Diclofenac Sodium (Topical) (Voltaren 1% Top Gel), 1 APPLN TOP BID PRN for PRN Nystatin/Triamcinolone (Mycogen ||), 1 APPLN TOP TID PRN for PRN Senna (Senokot), 1 TAB PO for Constipation Tramadol (Ultram), 50 MG PO BID PRN for Pain Physical Exam Vital Signs Date Time Temp Pulse Resp B/P (MAP) Pulse Ox O2 Delivery O2 Flow Rate FiO2 10/02/17 13:18 73 31/68 97 Room Air 10/02/17 12:01 77 18 99 Room Air 133/73 10/02/17 11:49 72 18 133/72 99 Room Air 10/02/17 11:46 133/72 10/02/17 11:20 74 10/02/17 11:05 136/66 10/02/17 09:53 36.5 80 20 118/55 97 Room Air Physical Exam CONSTITUTIONAL: Patient is a well-appearing 72-year-old white female who is awake and alert and in no acute distress. Vital signs are stable. EYES: Pupils equal, round, reactive to light and accommodation. EOMs intact without nystagmus. Sclera are anicteric. ENT: Tympanic membranes intact, with normal landmarks. External canals are clear. Oral and nasopharynx are clear. Mucous membranes are moist, no lesions , tongue and gums appear normal. CARDIOVASCULAR: Regular rate and rhythm, with normal S1 and S2, no murmur or gallop or rub is heard. No carotid bruits auscultated. No JVD. Peripheral pulses easy to palpable. RESPIRATORY: Breath sounds equal and clear to auscultation without wheezes, rales, or rhonchi heard. Full and equal chest expansion without accessory muscle use or retractions. GI: Well-healed surgical scars are noted. Bowel sounds are hypoactive. Abdomen is soft moderately distended, tympanic to percussion throughout. She has some mild discomfort on palpation of the lower abdomen, no guarding, rebound or rigidity.. RECTAL EXAM: No masses or tenderness, external hemorrhoids are noted. Liquid brown stool is noted, no fecal impaction. MUSCULOSKELETAL: Full range of motion of extremities x 4 with good strength. No cyanosis, edema, joint tenderness or swelling. No deformity. INTEGUMENTARY: No lesions or rash, normal skin turgor. NEUROLOGICAL: Alert, oriented, and cooperative. Cranial nerves, sensation and strength grossly intact. Pupils round, equal, and react to light, EOMs are full. LYMPH: No lymphadenopathy. Medical Decision & Procedures ER Provider Diagnostic Interpretation: CT ABD/PELVIS IV CONTRAST ONLY CLINICAL HISTORY: BLOATING, CONSTIPATION OVARIAN CARCINOMA. POSSIBLE BOWEL OBSTRUCTION. COMPARISON STUDY: 09/06/2017 TECHNIQUE: Following the IV administration of 119 mL of Optiray-320, CT scan of the abdomen and pelvis was performed from the lung bases to the proximal femurs. Images are reviewed in the axial, sagittal, and coronal planes. IV contrast was administered without complication. A dose lowering technique was utilized adhering to the principles of ALARA. CT DOSE: 415.85 mGy.cm FINDINGS: Lower chest: There is elevation the right hemidiaphragm. There is a 15 mm left lower lobe pulmonary nodule. Additional smaller left lower lobe pulmonary nodules are evident. Liver: There is a stable 12 mm hypodensity within the right hepatic dome. Gallbladder: Unremarkable. Spleen: Normal in size and attenuation. Pancreas: Unremarkable. Adrenal glands: Unremarkable. Kidneys: Subcentimeter renal hypodensities are felt to represent cysts. There is mild fullness of each renal collecting system. Bowel: There are multiple fluid-filled colonic bowel loops. There is an umbilical hernia containing a small knuckle of transverse colon. Sigmoid colon appears decompressed. A colonic obstruction at the sigmoid level cannot be excluded Peritoneum: There is persistent ascites. As a 12 mm nodule abutting the serosal surface of the liver near the dome the diaphragm. This is suspicious for a peritoneal implant. Multiple omental implants are visualized. Vasculature: The abdominal aorta is normal in course and caliber. Adenopathy: None. Pelvic viscera: There is a 2.6 cm cystic right adnexal mass. There is a 12 cm cystic left adnexal mass. This 12 cm mass demonstrates mural nodularity suspicious for neoplasm. The uterus appears surgically absent Skeletal structures: No destructive osseous lesions are seen. IMPRESSION: 1. Fluid-filled colon. The sigmoid colon appears decompressed and a colonic obstruction at the sigmoid level cannot be excluded 2. Peritoneal and abdominal carcinomatosis 3. 2.6 cm cystic right adnexal mass and 12 cm cystic left adnexal mass demonstrating mural nodularity 4. Ascites 5. Persistent lower lobe pulmonary nodularity 6. Ventral hernia containing a knuckle of transverse colon ABDOMEN 2VIEW W/PA CHEST RTN CLINICAL HISTORY: EVAL BOWEL OBSTRUCTION obstruction COMPARISON STUDY: CT 09/06/2017 FINDINGS: Chronic elevation right hemidiaphragm. Stable parenchymal nodularity left hemithorax. No acute infiltrate. Bowel pattern is nonobstructive. Moderate degenerative change of the lumbar spine. IMPRESSION: 1. Nonobstructive bowel pattern. 2. Stable parenchymal nodularity of the lungs. 3. No acute process. Laboratory Results 10/02/17 11:15 Red Blood Count 3.15, Mean Corpuscular Volume 92.4, Mean Corpuscular Hemoglobin 30.8, Mean Corpuscular Hemoglobin Concent 33.3, Mean Platelet Volume 8.0, Neutrophils (%) (Auto) 85.3, Lymphocytes (%) (Auto) 10.8, Monocytes (%) (Auto) 2.5, Eosinophils (%) (Auto) 0.8, Basophils (%) (Auto) 0.2, Neutrophils # (Auto) 4.02, Lymphocytes # (Auto) 0.51, Monocytes # (Auto) 0.12, Eosinophils # (Auto) 0.04, Basophils # (Auto) 0.01 10/02/17 11:15 Test 10/02/17 11:15 White Blood Count 4.72 K/uL (4.8-10.8) Red Blood Count 3.15 M/uL (4.2-5.4) Hemoglobin 9.7 g/dL (12.0-16.0) Hematocrit 29.1 % (37-47) Mean Corpuscular Volume 92.4 fL (80-100) Mean Corpuscular Hemoglobin 30.8 pg (25-34) Mean Corpuscular Hemoglobin Concent 33.3 g/dl (32-36) Platelet Count 477 K/uL (130-400) Mean Platelet Volume 8.0 fL (7.4-10.4) Neutrophils (%) (Auto) 85.3 % Lymphocytes (%) (Auto) 10.8 % Monocytes (%) (Auto) 2.5 % Eosinophils (%) (Auto) 0.8 % Basophils (%) (Auto) 0.2 % Neutrophils # (Auto) 4.02 K/uL (1.4-6.5) Lymphocytes # (Auto) 0.51 K/uL (1.2-3.4) Monocytes # (Auto) 0.12 K/uL (0.11-0.59) Eosinophils # (Auto) 0.04 K/uL (0-0.5) Basophils # (Auto) 0.01 K/uL (0-0.2) RDW Standard Deviation 47.6 fL (36.4-46.3) RDW Coefficient of Variation 14.5 % (11.5-14.5) Immature Granulocyte % (Auto) 0.4 % Immature Granulocyte # (Auto) 0.02 K/uL (0.00-0.02) Anion Gap 6.0 mmol/L (3-11) Est Creatinine Clear Calc Drug Dose 40.1 ml/min Estimated GFR () 57.2 Estimated GFR (Non- 49.4 BUN/Creatinine Ratio 12.4 (10-20) Calcium Level 9.2 mg/dl (8.5-10.1) Total Bilirubin 0.3 mg/dl (0.2-1) Aspartate Amino Transf (AST/SGOT) 14 U/L (15-37) Alanine Aminotransferase (ALT/SGPT) 16 U/L (12-78) Alkaline Phosphatase 83 U/L (45-117) Total Protein 7.2 gm/dl (6.4-8.2) Albumin 3.4 gm/dl (3.4-5.0) Globulin 3.8 gm/dl (2.5-4.0) Albumin/Globulin Ratio 0.9 (0.9-2) Medications Administered Medications (Trade) Dose Ordered Sig/Marisa Route Start Time Stop Time Status Last Admin Dose Admin Sodium Chloride 1,000 ml @ 999 mls/hr Q1H1M STAT IV 10/02/17 10:25 10/02/17 11:25 DC 10/02/17 11:48 999 MLS/HR Sodium Chloride 1,000 ml @ 250 mls/hr Q4H STAT IV 10/02/17 10:25 10/02/17 14:24 DC 10/02/17 13:29 250 MLS/HR ED Course The patient was seen and evaluated. Her old records were reviewed. IV lock was initiated she was gently hydrated with normal saline solution. He was offered medication for pain and nausea, but declines. Laboratory studies were collected including CBC with differential, CMP. Urinalysis was also ordered. Acute abdominal series was obtained. Patient's laboratory studies revealed a normal white count 4700, H&H stable at 9.7 and 29.1. Electrolytes sodium 132, potassium 3.4, chloride 94, carbon dioxide 32, BUN 14 and creatinine 1.2. LFTs are unremarkable. The patient had not provided a urine sample at the time of disposition. Acute abdominal series was obtained and essentially unremarkable. There is a nonobstructive bowel pattern. Stable parenchymal nodularity in the lungs is noted. Given her extensive surgical history and history of malignancy, CT scan of the abdomen and pelvis with IV contrast was ordered. There were multiple fluid filled colonic bowel loops the sigmoid colon appeared decompressed, and a colonic obstruction at the level of the sigmoid could not be excluded. She had peritoneal and abdominal carcinomatosis and adnexal lesions that are concerning for neoplasm. She has a ventral hernia with a portion of transverse colon. Patient was reassessed frequently, and reported that she felt well. She had an additional large liquid bowel movement in the emergency department. All laboratory and diagnostic imaging studies were reviewed with her and her daughter, and discussed with Dr. Ontiveros who also independently evaluated the patient. I did review the CT scan with [facility], who recommended non-surgical management. Admission/Observation was advised. The patient was reviewed with the [facility] for further care and evaluation. Differential diagnoses entertained included bowel obstruction, mass or malignancy, constipation, fecal impaction, infectious versus inflammatory colitis, enteritis, ascites, among others. Medical Decision See ED Course. Medication Reconcilliation Current Medication List: was personally reviewed by mo Blood Pressure Screening Patient's blood pressure: Normal blood pressure Blood pressure disposition: Did not require urgent referral Impression Primary Impression: Colonic obstruction Departure Information Referrals Hay Ye M.D. (PCP) Patient Instructions My [facility]"
[2017-10-02] MEDS ORDERED: MAGNESIUM HYDROXIDE SUSP 30 ML UDC PO PRN (15:45)
[2017-10-02] MEDS ORDERED: TRIAMCINOLONE ACET 0.1% CR 15 GM TUBE EXT SCH (15:45)
[2017-10-02] MEDS ORDERED: ALBUTEROL HFA 8 GM INHALER INH PRN (15:45)
[2017-10-02] MEDS ORDERED: SENNA 8.6 MG TAB PO PRN (15:45)
[2017-10-02] MEDS ORDERED: ONDANSETRON INJ 2 MG/ML 2 ML VIAL IV PRN (15:45)
[2017-10-02] MEDS ORDERED: DICLOFENAC SOD 1% GEL 100 GM TUBE EXT PRN (15:45)
[2017-10-02] MEDS ORDERED: ONDANSETRON 8 MG TAB PO PRN (15:45)
[2017-10-02] MEDS ORDERED: NYSTATIN/TRIAMCINOLONE OINT 15 GM TUBE EXT PRN (15:45)
[2017-10-02] MEDS ORDERED: ACETAMINOPHEN 325 MG TAB PO PRN (15:45)
[2017-10-02] MEDS ORDERED: ALBUTEROL 0.083% NEBU SOLN 3 ML VIAL INH PRN (15:45)
--- NOTE | 2017-10-02 16:12 | History and Physical ---
History & Physical Date & Time of Service: Oct 02, 2017 at 15:48 Chief Complaint: Possible Bowel Blockage W/ Ovarian Ca Primary Care Physician: Hay Ye M.D. History of Present Illness Source: patient 72 y/o F c/o decreased bowel movements and constipation. Pt first noted diarrhea last week, so she held her stool softeners and senna. She increased her probiotic use. She started to have bloating and constipation at that time. She tried prunes, apricots and readded the softeners and senna, but this still did not increase her stool bulk. She did have more loose stools, but the volume was not its usual and no formed stools. [facility] who recommended mag citrate and a mini enema at home. She at 2 metamucil bars about 3 days ago. She did not increase her water with the metamucil bars, but drinks 2x20oz thermos of water during the day and additional 20oz later at night. She also drinks 2-3 cups of hot tea that is decaff. She does feel that her PO intake is overall down because she is bored with the usual food that she eats. Her appetite is good when she does eat and she has no PO intolerance although her meals are smaller now due to some fatigue with eating. She has no abd pain, n/v with this. She has had several bowel movements today that are all liquid in nature. She has a feeling of pressure "down low" like she is going to have a bowel movement , but does not. She has had a lot of increased anxiety lately because "I know I am going to from this, but I don't know when. I feel like I'm in limbo.". She is also anxious because she does not like to discuss her bowel movements with her family "and now they all know". Pt just finished a 21 day cycle of a PO chemo drug that she has not taken in the past. It does list constipation and/or diarrhea as a side effect. Pt denies fever, SOB, chest pain, LE pain or swelling. Past Medical/Surgical History Medical Problems: (1) Abdominal pain, left lower quadrant Status: Resolved (2) Anemia Status: Resolved (3) Bilateral pleural effusion Status: Resolved (4) Bronchitis Status: Resolved (5) Bronchospasm Status: Resolved (6) Chemotherapy-induced nausea Status: Resolved (7) Dehydration Status: Resolved (8) Diabetes Status: Chronic (9) Encounter for removal of sutures Status: Resolved (10) Encounter for removal of sutures Status: Resolved (11) GI bleed Status: Resolved (12) Hematemesis Status: Resolved (13) History of ovarian cancer Status: Chronic (14) HTN (hypertension) Status: Chronic (15) Laceration Status: Resolved (16) Leukocytosis Status: Resolved (17) Ovarian cancer Status: Chronic (18) Pneumonia Status: Resolved (19) Vomiting Status: Resolved (20) Vomiting Status: Resolved Surgical Problems: (1) S/P CHELSEY-BSO Permanent Comment: Exploratory laparotomy, tumor cytoreductive surgery including hysterectomy, bilateral salpingo-oophorectomy with resection of bilateral adnexal masses, infracolic omentectomy, appendectomy, argon beam ablation of tumor implants, evacuation of ascites, and resection of tumor from the cul-de-sac on 05/10/15 Status: Resolved Family History Family history was reviewed; no changes noted. Social History Smoking Status: Never Smoker Alcohol Use: none Drug Use: none Marital Status: single Occupational Status: retired Immunizations History of Influenza Vaccine: Yes Influenza Vaccine Date: May 20, 2015 History of Tetanus Vaccine?: Yes Tetanus Immunization Date: May 10, 2015 History of Pneumococcal: Yes Pneumococcal Date: Oct 11, 2014 History of Hepatitis B Vaccine: Unknown Multi-Drug Resistant Organisms History of MDRO: No Allergies Coded Allergies: Sulfa Antibiotics (Verified Allergy, Unknown, Unknown, 10/02/17) Clarithromycin (Verified Adverse Reaction, Mild, DIZZY, 10/02/17) Home Medications Scheduled Ascorbic Acid (Ascorbic Acid), 500 MG PO DAILY B-Complex Vitamins (Vitamin B Complex), 1 TAB PO DAILY Calcium Citrate-Vitamin D ([place]io-Citrate Plus Vitamin), 1 TAB PO TID Cholecalciferol (Vitamin D3), 1 TAB PO DAILY Citalopram Hydrobromide (Citalopram Hydrobromide), 1 TAB PO DAILY Diltiazem Hcl Coated Beads (Cartia Xt), 1 CAP PO DAILY Docusate Sodium (Colace), 2 CAP PO DAILY Fish Oil ([place]-3), 1 CAP PO BID Fluticasone Propionate (Nasal) (Flonase Allergy Relief), 2 SPRAYS ASAD DAILY Gabapentin (Neurontin), 400 MG PO TID Indapamide (Indapamide), 1 TAB PO DAILY Levothyroxine Sodium (Levothyroxine Sodium), 1 TAB PO DAILY Losartan Potassium (Cozaar), 100 MG PO DAILY Magnesium Oxide (Mg Supplement (Mag-200), 1 TAB PO TID Multivitamin (Multivitamin), 1 TAB PO DAILY Nortriptyline (Pamelor), 10 MG PO DAILY Omeprazole (Prilosec), 20 MG PO DAILY Ondansetron (Ondansetron HCl), 1 TAB PO UD Potassium Chloride (Potassium Chloride), 1 DOSE PO DAILY Probiotic Product (Probiotic), 1 CAP PO DAILY Tolterodine Tartrate (Detrol LA), 1 CAP PO QPM Triamcinolone Acet (Aristocort 0.1%), 1 APPLN TOP UD Vitamin E (Vitamin E), 1 TAB PO DAILY Scheduled PRN Albuterol Hfa (Ventolin Hfa), 2-4 PUFFS INH Q6H PRN for SOB/Wheezing Albuterol Sulf (Proventil 0.083% 2.5MG/3ML), 2.5 MG INH QID PRN for Wheezing Alprazolam (Xanax), 0.25 MG PO BID PRN for Anxiety Diclofenac Sodium (Topical) (Voltaren 1% Top Gel), 1 APPLN TOP BID PRN for PRN Nystatin/Triamcinolone (Mycogen ||), 1 APPLN TOP TID PRN for PRN Senna (Senokot), 1 TAB PO for Constipation Tramadol (Ultram), 50 MG PO BID PRN for Pain Review of Systems Pertinent positives and negatives reviewed in HPI--all others negative Physical Exam Vital Signs Date Time Temp Pulse Resp B/P (MAP) Pulse Ox O2 Delivery O2 Flow Rate FiO2 10/02/17 15:00 81 18 153/88 98 Room Air 10/02/17 13:18 73 31/68 97 Room Air 10/02/17 12:01 77 18 99 Room Air 133/73 10/02/17 11:49 72 18 133/72 99 Room Air 10/02/17 11:46 133/72 10/02/17 11:20 74 10/02/17 11:05 136/66 10/02/17 09:53 36.5 80 20 118/55 97 Room Air General Appearance: WD/WN, no apparent distress Head: normocephalic, atraumatic Eyes: normal inspection, sclerae normal Respiratory/Chest: normal breath sounds, no respiratory distress Cardiovascular: regular rate, rhythm, no edema Abdomen/GI: non tender, soft, + distended Extremities/Musculoskelatal: no calf tenderness, no pedal edema Neurologic/Psych: alert, normal mood/affect, oriented x 3 Skin: normal color, warm/dry Diagnostics Laboratory Results Results Past 24 Hours Test 10/02/17 11:15 Range/Units White Blood Count 4.72 4.8-10.8 K/uL Red Blood Count 3.15 4.2-5.4 M/uL Hemoglobin 9.7 12.0-16.0 g/dL Hematocrit 29.1 37-47 % Mean Corpuscular Volume 92.4 80-100 fL Mean Corpuscular Hemoglobin 30.8 25-34 pg Mean Corpuscular Hemoglobin Concent 33.3 32-36 g/dl Platelet Count 477 130-400 K/uL Mean Platelet Volume 8.0 7.4-10.4 fL Neutrophils (%) (Auto) 85.3 % Lymphocytes (%) (Auto) 10.8 % Monocytes (%) (Auto) 2.5 % Eosinophils (%) (Auto) 0.8 % Basophils (%) (Auto) 0.2 % Neutrophils # (Auto) 4.02 1.4-6.5 K/uL Lymphocytes # (Auto) 0.51 1.2-3.4 K/uL Monocytes # (Auto) 0.12 0.11-0.59 K/uL Eosinophils # (Auto) 0.04 0-0.5 K/uL Basophils # (Auto) 0.01 0-0.2 K/uL RDW Standard Deviation 47.6 36.4-46.3 fL RDW Coefficient of Variation 14.5 11.5-14.5 % Immature Granulocyte % (Auto) 0.4 % Immature Granulocyte # (Auto) 0.02 0.00-0.02 K/uL Sodium Level 132 136-145 mmol/L Potassium Level 3.4 3.5-5.1 mmol/L Chloride Level 94 98-107 mmol/L Carbon Dioxide Level 32 21-32 mmol/L Anion Gap 6.0 3-11 mmol/L Blood Urea Nitrogen 14 7-18 mg/dl Creatinine 1.12 0.60-1.20 mg/dl Est Creatinine Clear Calc Drug Dose 40.1 ml/min Estimated GFR () 57.2 Estimated GFR (Non- 49.4 BUN/Creatinine Ratio 12.4 10-20 Random Glucose 102 70-99 mg/dl Calcium Level 9.2 8.5-10.1 mg/dl Total Bilirubin 0.3 0.2-1 mg/dl Aspartate Amino Transf (AST/SGOT) 14 15-37 U/L Alanine Aminotransferase (ALT/SGPT) 16 12-78 U/L Alkaline Phosphatase 83 45-117 U/L Total Protein 7.2 6.4-8.2 gm/dl Albumin 3.4 3.4-5.0 gm/dl Globulin 3.8 2.5-4.0 gm/dl Albumin/Globulin Ratio 0.9 0.9-[address] AP: 1. Fluid-filled colon. The sigmoid colon appears decompressed and a colonic obstruction at the sigmoid level cannot be excluded 2. Peritoneal and abdominal carcinomatosis 3. 2.6 cm cystic right adnexal mass and 12 cm cystic left adnexal mass demonstrating mural nodularity 4. Ascites 5. Persistent lower lobe pulmonary nodularity 6. Ventral hernia containing a knuckle of transverse colon C/AXR: no obstruction Impression Assessment and Plan 72 y/o F who was admitted on 10/02 for partial sigmoid colon obstruction Partial sigmoid colon obstruction: pt is moving liquid stool, but nothing more solid Possibly related to decreased PO intake and anxiety, also ate metamucil bars x2 without increase in fluids IVF, prunes with butter Full liquid diet Continue stool softeners CT AP does not suggest that this is due to a mass or new mets Gen surg saw pt in the ED and does not feel there is anything surgical at this time, but if this should change pt should likely been seen by her surgeons at [facility] [place] Anemia: Hb baseline is generally around 11, now at 9.7 today in the setting of new chemo agent Monitor HypoK: takes PO at baseline Added to IVF HTN: continue home meds Ovarian ca: stable, just finished 21 day course of PO chemo DM: diet controlled Depression/anxiety: continue home meds Other: Full cardiac code but does not wish for intubation Full liquid diet SCDs for DVT proph given likely short duration of admission and low Hb Level of Care Med/Surg Resuscitation Status FULL NO MECH VENTILATION VTE Prophylaxis VTE Risk Assessment Done? Y/N: Yes Risk Level: Low
[2017-10-02 16:51] VITALS: BP 151/81; PULSE 81; TEMP 36.6; O2SAT 99
[2017-10-02 16:52] VITALS: O2SAT 97; BMI 27.6
[2017-10-02] MEDS: NSS + 20MEQ KCL 1000ML 1,000 ML IV SCH (18:51)
[2017-10-02 19:57] VITALS: BP 151/81; PULSE 81; TEMP 36.6; O2SAT 97
[2017-10-02 20:00] VITALS: O2SAT 97
[2017-10-02 20:10] VITALS: BP 159/77; PULSE 82; TEMP 37.4; O2SAT 97
[2017-10-02] MEDS: GABAPENTIN 400 MG CAP PO SCH (20:24)
[2017-10-02] MEDS: OMEGA-3 (PURIFIED FISH OIL) 1 GM CAP PO SCH (20:24)
[2017-10-02] MEDS: MAGNESIUM OXIDE 400 MG TAB PO SCH (20:24)
[2017-10-02] MEDS: CALCIUM 600MG + VIT D 400 IU TAB PO SCH (20:24)
[2017-10-02] MEDS: TOLTERODINE TARTRATE LA 2 MG CAPCR PO SCH (20:25)
[2017-10-02] MEDS: ALPRAZOLAM 0.25 MG TAB PO PRN (22:00)
[2017-10-02 23:46] VITALS: BP 174/92; PULSE 83; TEMP 37.5; O2SAT 96
[2017-10-03 04:02] VITALS: BP 155/76; PULSE 89; TEMP 36.9; O2SAT 96
[2017-10-03] MEDS: LEVOTHYROXINE 88 MCG TAB PO SCH (06:01)
[2017-10-03] MEDS: NSS + 20MEQ KCL 1000ML 1,000 ML IV SCH ×2 (06:01→14:48)
[2017-10-03 06:20] LABS: HEMATOCRIT 27.4 % (37-47); HEMOGLOBIN 9.2 g/dL (12.0-16.0); MEAN CELL VOLUME 91.9 fL (80-100); MEAN CORPUSCULAR HEMOGLOBIN 30.9 pg (25-34); MEAN CORPUSCULAR HGB CONC 33.6 g/dl (32-36); MEAN PLATELET VOLUME 8.1 fL (7.4-10.4); PLATELET COUNT 487 K/uL (130-400); RED CELL DISTRIBUTION WIDTH CV 14.6 % (11.5-14.5); RED CELL DISTRIBUTION WIDTH SD 47.9 fL (36.4-46.3); WHITE BLOOD COUNT 3.62 K/uL (4.8-10.8)
[2017-10-03 06:56] LABS: CALCIUM 8.2 mg/dl (8.5-10.1); CREATININE 0.78 mg/dl (0.60-1.20); POTASSIUM 3.7 mmol/L (3.5-5.1)
[2017-10-03 07:25] VITALS: BP_SYST 145; BP_SYST 172; BP_DIAS 77; PULSE 85; TEMP 37; O2SAT 97
[2017-10-03] MEDS ORDERED: NORTRIPTYLINE HCL 10 MG CAP PO SCH (08:00)
[2017-10-03] MEDS ORDERED: CITALOPRAM 20 MG TAB PO SCH (08:00)
[2017-10-03] MEDS ORDERED: POTASSIUM CHLORIDE PWD 20 MEQ PACK PO SCH (08:00)
[2017-10-03] MEDS: FLUTICASONE PROPIONATE NA SPR 16 GM BTL NAE SCH (08:23)
[2017-10-03] MEDS: TRAMADOL HCL 50 MG TAB PO PRN (08:24)
[2017-10-03] MEDS: MAGNESIUM OXIDE 400 MG TAB PO SCH ×4 (08:26→21:30)
[2017-10-03] MEDS: DILTIAZEM HCL 300 MG CAPCR PO SCH (08:26)
[2017-10-03] MEDS: PANTOprazole SOD 40 MG TAB PO SCH (08:27)
[2017-10-03] MEDS: LACTOBACILLUS ACIDOPHILUS (FLORANEX) TAB PO SCH (08:27)
[2017-10-03] MEDS: GABAPENTIN 400 MG CAP PO SCH ×4 (08:27→21:26)
[2017-10-03] MEDS: INDAPAMIDE 1.25 MG TAB PO SCH (08:28)
[2017-10-03] MEDS: CALCIUM 600MG + VIT D 400 IU TAB PO SCH ×4 (08:28→21:30)
[2017-10-03] MEDS: DOCUSATE SODIUM 100 MG CAP PO SCH (08:29)
[2017-10-03] MEDS: LOSARTAN POTASSIUM 50 MG TAB PO SCH (08:29)
[2017-10-03] MEDS: OMEGA-3 (PURIFIED FISH OIL) 1 GM CAP PO SCH ×3 (08:33→21:30)
[2017-10-03] MEDS: VITAMIN B COMPLEX TAB PO SCH (08:34)
[2017-10-03] MEDS: CHOLECALCIFEROL 1000 INTER.UNIT TAB PO SCH (08:34)
[2017-10-03] MEDS: ASCORBIC ACID 500 MG TAB PO SCH (08:34)
[2017-10-03] MEDS: TOCOPHERYL, DL-ALPHA 100 INTERUNIT CAP PO SCH (08:35)
--- NOTE | 2017-10-03 08:59 | Clinical Documentation Query ---
CLINICAL DOCUMENTATION QUERY Dr. THOMAS, In your clinical opinion does this patient have: ( x ) peritoneal and abdominal carcinomatosis ( ) Not Agree ( ) Other explanation of clinical findings (Please Explain) ( ) Unable to determine (Please Define) ( ) Need to Discuss The medical record reflects the following clinical findings, treatment, and risk factors. Clinical Indicators: 72 yo female presenting with a partial bowel obstruction. CT abd showed continuing peritoneal and abdominal carcinomatosis. Treatment: ongoing oral chemotherapy with recently completed 21 day cycle, CT abd Risk Factors: ovarian cancer Please clarify and document your clinical opinion in the progress notes and discharge summary. Terms such as "probable", "suspected", "likely", "questionable", "possible", or "still to be ruled out" are acceptable. IF IN AGREEMENT, YOU MUST DOCUMENT ABOVE DIAGNOSTIC STATEMENT IN DAILY PROGRESS NOTES AND DISCHARGE SUMMARY. This document is not part of the patient's record. Thank You, Joceline Parham RN [phone]
--- NOTE | 2017-10-03 10:09 | Progress Note ---
Subjective Date of Service: Oct 03, 2017. Subjective this pt is anxious about her cancer progressing, she has issues with loose bowel movement and some concern on CT of a partial colonic obstruction, she has some stool passage and surgery feels that this is not a mechanical obstruction. Pt as agreed to speak to palliative care. Problem List Medical Problems: (1) Colonic obstruction Status: Acute (2) Diabetes Status: Chronic (3) History of ovarian cancer Status: Chronic (4) HTN (hypertension) Status: Chronic (5) Ovarian cancer Status: Chronic Social History Problems: (1) Status post chemotherapy Status: Acute Review of Systems Constitutional: + weakness, + fatigue, No fever, No chills Respiratory: No cough, No shortness of breath Cardiac: No chest pain, No edema Abdomen: + pain, + diarrhea, No nausea, No vomiting Musculoskeletal: No joint pain, No muscle pain Female : No dysuria, No hematuria Psychiatric: No depression symptoms, No anxiety Objective Vital Signs Date Time Temp Pulse Resp B/P (MAP) Pulse Ox O2 Delivery O2 Flow Rate FiO2 10/03/17 08:15 Room Air 10/03/17 07:25 37.0 85 18 172/77 (108) 97 Room Air 145/77 (99) 10/03/17 04:02 36.9 89 20 155/76 (102) 96 Room Air 10/03/17 00:00 Room Air 10/02/17 23:46 37.5 83 20 174/92 (119) 96 Room Air 10/02/17 20:10 37.4 82 18 159/77 (104) 97 Room Air 10/02/17 20:00 97 Room Air 10/02/17 19:57 36.6 81 18 97 10/02/17 16:52 97 Room Air 10/02/17 16:51 36.6 81 18 151/81 (104) 99 Room Air 10/02/17 16:33 81 18 157/88 99 10/02/17 16:26 81 18 157/88 99 Room Air 10/02/17 15:00 81 18 153/88 98 Room Air 10/02/17 13:18 73 31/68 97 Room Air 10/02/17 12:01 77 18 99 Room Air 133/73 10/02/17 11:49 72 18 133/72 99 Room Air 10/02/17 11:46 133/72 10/02/17 11:20 74 10/02/17 11:05 136/66 Physical Exam General Appearance: WD/WN, + moderate distress Eyes: normal inspection, sclerae normal Neck: supple, no JVD Respiratory/Chest: chest non-tender, lungs clear, normal breath sounds Cardiovascular: regular rate, rhythm, no murmur Abdomen: normal bowel sounds, soft, + tenderness Extremities: normal range of motion, no pedal edema Neurologic/Psychiatric: alert, oriented x 3 Skin: normal color, warm/dry, no rash Laboratory Results Last 24 Hours Test 10/02/17 11:15 10/02/17 15:40 10/03/17 05:14 White Blood Count 4.72 K/uL 3.62 K/uL Red Blood Count 3.15 M/uL 2.98 M/uL Hemoglobin 9.7 g/dL 9.2 g/dL Hematocrit 29.1 % 27.4 % Mean Corpuscular Volume 92.4 fL 91.9 fL Mean Corpuscular Hemoglobin 30.8 pg 30.9 pg Mean Corpuscular Hemoglobin Concent 33.3 g/dl 33.6 g/dl Platelet Count 477 K/uL 487 K/uL Mean Platelet Volume 8.0 fL 8.1 fL Neutrophils (%) (Auto) 85.3 % Lymphocytes (%) (Auto) 10.8 % Monocytes (%) (Auto) 2.5 % Eosinophils (%) (Auto) 0.8 % Basophils (%) (Auto) 0.2 % Neutrophils # (Auto) 4.02 K/uL Lymphocytes # (Auto) 0.51 K/uL Monocytes # (Auto) 0.12 K/uL Eosinophils # (Auto) 0.04 K/uL Basophils # (Auto) 0.01 K/uL RDW Standard Deviation 47.6 fL 47.9 fL RDW Coefficient of Variation 14.5 % 14.6 % Immature Granulocyte % (Auto) 0.4 % Immature Granulocyte # (Auto) 0.02 K/uL Sodium Level 132 mmol/L 136 mmol/L Potassium Level 3.4 mmol/L 3.7 mmol/L Chloride Level 94 mmol/L 102 mmol/L Carbon Dioxide Level 32 mmol/L 28 mmol/L Anion Gap 6.0 mmol/L 6.0 mmol/L Blood Urea Nitrogen 14 mg/dl 7 mg/dl Creatinine 1.12 mg/dl 0.78 mg/dl Est Creatinine Clear Calc Drug Dose 40.1 ml/min 56.8 ml/min Estimated GFR () 57.2 88.6 Estimated GFR (Non- 49.4 76.5 BUN/Creatinine Ratio 12.4 8.8 Random Glucose 102 mg/dl 85 mg/dl Calcium Level 9.2 mg/dl 8.2 mg/dl Total Bilirubin 0.3 mg/dl Aspartate Amino Transf (AST/SGOT) 14 U/L Alanine Aminotransferase (ALT/SGPT) 16 U/L Alkaline Phosphatase 83 U/L Total Protein 7.2 gm/dl Albumin 3.4 gm/dl Globulin 3.8 gm/dl Albumin/Globulin Ratio 0.9 Urine Color YELLOW Urine Appearance CLEAR Urine pH 7.0 Urine Specific [place] <= 1.005 Urine Protein NEG Urine Glucose (UA) NEG Urine Ketones NEG Urine Occult Blood NEG Urine Nitrite NEG Urine Bilirubin NEG Urine Urobilinogen NEG Urine Leukocyte Esterase NEG Magnesium Level 1.9 mg/dl Assessment and Plan 72 y/o F who was admitted on 10/02 for partial sigmoid colon obstruction she has a history of abdominal carcinomatosis from metastatic ovarian cancer, currently on oral treatment Partial sigmoid colon obstruction: pt is moving liquid stool, but nothing more solid will try to increase laxatives IVF, Full liquid diet CT AP does not suggest that this is due to a mass or new mets Gen surg saw pt in the ED and does not feel there is anything surgical at this time, if surgery is needed recommend transfer Anemia of chronic disease: Hb baseline is generally around 11, now at 9.7 today in the setting of new chemo agent Monitor HypoK:replete HTN: diltiazem, cozaar, lozol Ovarian ca: stable, just finished 21 day course of PO chemo there are [address] of abdomen DM: diet controlled Depression/anxiety:pamelor Lovenox and SCDs for DVT proph given likely short duration of admission and low Hb
[2017-10-03 11:25] VITALS: BP 155/79; PULSE 88; TEMP 36.5; O2SAT 98
[2017-10-03] MEDS: MULTIVITAMIN TAB PO SCH (13:07)
[2017-10-03] MEDS: POTASSIUM CHLORIDE 20 MEQ TABCR PO SCH (13:07)
[2017-10-03 15:07] VITALS: BP 127/71; PULSE 79; TEMP 36.8; O2SAT 97
[2017-10-03] MEDS ORDERED: LAVAGE SOLUTION 4000ML PO SCH (15:45)
[2017-10-03] MEDS: [UNRECOGNIZED DRUG - OTHER] PO SCH ×2 (16:46→21:24)
[2017-10-03 19:21] VITALS: BP 138/70; TEMP 36.7; O2SAT 98
[2017-10-03] MEDS: TOLTERODINE TARTRATE LA 2 MG CAPCR PO SCH (21:27)
[2017-10-03] MEDS: CITALOPRAM 20 MG TAB PO SCH (21:27)
[2017-10-03] MEDS: NORTRIPTYLINE HCL 10 MG CAP PO SCH (21:28)
[2017-10-03] MEDS: ALPRAZOLAM 0.25 MG TAB PO PRN (21:36)
[2017-10-03 23:05] VITALS: BP 126/72; PULSE 85; TEMP 37; O2SAT 97
[2017-10-04] MEDS: NSS + 20MEQ KCL 1000ML 1,000 ML IV SCH ×3 (00:55→20:15)
[2017-10-04] MEDS: [UNRECOGNIZED DRUG - OTHER] PO SCH ×5 (00:55→17:00)
[2017-10-04 04:20] VITALS: BP 129/66; PULSE 74; TEMP 36.9; O2SAT 96
[2017-10-04] MEDS: LEVOTHYROXINE 88 MCG TAB PO SCH (05:44)
[2017-10-04 07:52] VITALS: BP 140/74; PULSE 78; TEMP 36.7; O2SAT 97
[2017-10-04] MEDS: CALCIUM 600MG + VIT D 400 IU TAB PO SCH ×3 (08:00→20:19)
[2017-10-04] MEDS: CHOLECALCIFEROL 1000 INTER.UNIT TAB PO SCH (08:00)
[2017-10-04] MEDS: DOCUSATE SODIUM 100 MG CAP PO SCH (08:00)
[2017-10-04] MEDS: ASCORBIC ACID 500 MG TAB PO SCH (08:00)
[2017-10-04] MEDS: OMEGA-3 (PURIFIED FISH OIL) 1 GM CAP PO SCH ×2 (08:00→20:22)
[2017-10-04] MEDS: VITAMIN B COMPLEX TAB PO SCH (08:00)
[2017-10-04] MEDS: MULTIVITAMIN TAB PO SCH (08:00)
[2017-10-04] MEDS: TOCOPHERYL, DL-ALPHA 100 INTERUNIT CAP PO SCH (08:00)
[2017-10-04 08:03] VITALS: O2SAT 97
[2017-10-04] MEDS: LOSARTAN POTASSIUM 50 MG TAB PO SCH (08:25)
[2017-10-04] MEDS: LACTOBACILLUS ACIDOPHILUS (FLORANEX) TAB PO SCH (08:25)
[2017-10-04] MEDS: FLUTICASONE PROPIONATE NA SPR 16 GM BTL NAE SCH (08:25)
[2017-10-04] MEDS: DILTIAZEM HCL 300 MG CAPCR PO SCH (08:25)
[2017-10-04] MEDS: INDAPAMIDE 1.25 MG TAB PO SCH (08:26)
[2017-10-04] MEDS: GABAPENTIN 400 MG CAP PO SCH ×3 (08:26→20:19)
[2017-10-04] MEDS: MAGNESIUM OXIDE 400 MG TAB PO SCH ×3 (08:26→20:20)
[2017-10-04] MEDS: POTASSIUM CHLORIDE 20 MEQ TABCR PO SCH (08:26)
[2017-10-04] MEDS: PANTOprazole SOD 40 MG TAB PO SCH (08:26)
--- NOTE | 2017-10-04 11:54 | Palliative Care Consultation ---
Consultation Date of Consultation: Oct 04, 2017. Requesting Physician: Dr. Anderson Attending Physician: Dr. Anderson Reason for Consultation: Supportive care History of Present Illness This 72 year old female patient with PMH ovarian cancer and abdominal carcinomatosis presented to the hospital a couple days ago with constipation and possible bowel obstruction. Patient states she was having diarrhea so she held her colace and senna. She then became constipated and ate 2 Metamucil bars thinking they would have the same effect as Mirilax. She was evaluated in ED by surgical team who does not believe she has mechanical obstruction. Patient has been given Colytely and has had some stool passage. Unfortunately, patient's cancer has been progressing. She is currently under the care of Dr. Turcios for the cancer and has been receiving chemotherapy. Patient states her CA125 has been increasing despite treatment and she knows her cancer is progressing. She made some comments about knowing she is going to and feels in limbo. Palliative care is consulted to provide extra layer of support. I met with the patient in room 400. She awake, alert and oriented x4, very pleasant woman. Patient states that she feels in limbo, "I know I'm going to , but I just don't know when. And I'm just here waiting." Patient says she's been tolerating chemo with mild tiredness. Still lives home alone independently and watches her grandchildren several days a week. Patient has a great family who are very supportive. She does have some embarrassment telling them why she in the hospital (with constipation), but her children are not embarrassed and are just concerned about her getting better. Patient is realistic in knowing that her disease will continue to worsen. She had some questions about palliative vs. hospice and wanted to know more about the hospice service "for when the time comes." We had a lengthy discussion. At the current time in patient's life, she would like to continue on with treatment. Past Medical/Surgical History Medical History: Ovarian cancer with abdominal carcinomatosis Anemia Bronchitis Dehydration Pleural effusion Pneumonia Surgical History: CHELSEY-BSO Social History Smoking Status: Never Smoker Drug Use: none Marital Status: single, Housing Status: lives alone Occupation Status: retired Four children- 2 sons and two daughters. Three of them are local except a daughter who lives in [place]. Six grandchildren and four great-grandchildren. Review of Systems Constitutional: No weight loss, No weakness ENT: No trouble swallowing Respiratory: + dyspnea on exertion, No cough, No wheezing, No shortness of breath, No dyspnea at rest Abdomen: No pain, No nausea, No vomiting Psychiatric: No depression symptoms, No anxiety Allergies Coded Allergies: Sulfa Antibiotics (Verified Allergy, Unknown, Unknown, 10/02/17) Clarithromycin (Verified Adverse Reaction, Mild, DIZZY, 10/02/17) Medications Current Inpatient Medications Medications (Trade) Dose Ordered Sig/Marisa Route Start Time Stop Time Status Last Admin Dose Admin Ioversol (Optiray 320) 111 ml UD PRN IV 10/02/17 12:30 10/06/17 12:29 Acetaminophen (Tylenol Tab) 650 mg Q4H PRN PO 10/02/17 15:45 11/01/17 15:44 Magnesium Hydroxide (Milk Of Magnesia Susp) 30 ml Q6H PRN PO 10/02/17 15:45 11/01/17 15:44 Ondansetron HCl (Zofran Inj) 4 mg Q6H PRN IV 10/02/17 15:45 11/01/17 15:44 Albuterol (Ventolin Hfa Inhaler) 2 puffs Q6H PRN INH 10/02/17 15:45 11/01/17 15:44 Albuterol Sulfate (Ventolin 0.083% 2.5MG/3ML Neb) 2.5 mg QID PRN INH 10/02/17 15:45 11/01/17 15:44 Alprazolam (Xanax Tab) 0.25 mg BID PRN PO 10/02/17 15:45 11/01/17 15:44 10/03/17 21:36 0.25 MG Ascorbic Acid (Vitamin C Tab) 500 mg DAILY PO 10/03/17 08:00 11/02/17 08:59 Cholecalciferol (Vitamin D Tab) 1,000 inter.unit DAILY PO 10/03/17 08:00 11/02/17 08:59 Diclofenac Sodium (Voltaren 1% Top Gel) 1 appln BID PRN EXT 10/02/17 15:45 11/01/17 15:44 Diltiazem HCl (Cardizem Cd Cap) 300 mg DAILY PO 10/03/17 08:00 11/02/17 08:59 10/04/17 08:25 300 MG Docusate Sodium (coLACE CAP) 200 mg DAILY PO 10/03/17 08:00 11/02/17 08:59 10/03/17 08:29 200 MG Fish Oil ([place]-3 (Purified Fish Oil) Cap) 1 gm BID PO 10/02/17 20:09 11/01/17 20:59 10/02/17 20:24 1 GM Fluticasone Propionate (Flonase Nasal [place]) 2 sprays DAILY ASAD 10/03/17 08:00 11/02/17 08:59 10/04/17 08:25 2 SPRAYS Gabapentin (Neurontin Cap) 400 mg TID PO 10/02/17 20:09 11/01/17 20:59 10/04/17 08:26 400 MG Levothyroxine Sodium (Synthroid Tab) 88 mcg DAILYBB PO 10/03/17 06:00 11/02/17 06:59 10/04/17 05:44 88 MCG Losartan Potassium (coZAAR TAB) 100 mg DAILY PO 10/03/17 08:00 11/02/17 08:59 10/04/17 08:25 100 MG Multivitamins (Multivitamin Tab) 1 tab DAILY PO 10/03/17 08:00 11/02/17 08:59 Nystatin/ Triamcinolone Acetonide (Mycogen II Oint) 1 appln TID PRN EXT 10/02/17 15:45 11/01/17 15:44 10/03/17 08:25 1 APPLN Ondansetron HCl (Zofran Tab) 8 mg DAILY PRN PO 10/02/17 15:45 11/01/17 15:44 Senna (Senokot Tab) 8.6 mg DAILY PRN PO 10/02/17 15:45 11/01/17 15:44 Tolterodine Tartrate (Detrol LA Cap) 2 mg QPM PO 10/02/17 21:00 11/01/17 20:59 10/03/17 21:27 2 MG Tramadol HCl (Ultram Tab) 50 mg BID PRN PO 10/02/17 15:45 11/01/17 15:44 10/03/17 08:24 50 MG Vitamin B Complex (Vitamin B Complex) 1 tab DAILY PO 10/03/17 08:00 11/02/17 08:59 Calcium/Vitamin D (Caltrate Plus Tab) 1 tab TID PO 10/02/17 20:08 11/01/17 20:59 10/03/17 08:28 1 TAB Indapamide (Lozol Tab) 2.5 mg DAILY PO 10/03/17 08:00 11/02/17 08:59 10/04/17 08:26 2.5 MG Magnesium Oxide (Mag-Ox Tab) 400 mg TID PO 10/02/17 20:08 11/01/17 20:59 10/04/17 08:26 400 MG Pantoprazole Sodium (Protonix Tab) 40 mg QAM PO 10/03/17 08:00 11/02/17 08:59 10/04/17 08:26 40 MG Lactobacillus Acidophilus (Floranex Tab) 4 tab DAILY PO 10/03/17 08:00 11/02/17 08:59 10/04/17 08:25 4 TAB [id number] Acetate (Vitamin E Cap) 100 interunit DAILY PO 10/03/17 08:00 11/02/17 08:59 Potassium Chloride/Sodium Chloride 1,000 ml @ 100 mls/hr Q10H IV 10/02/17 18:15 11/01/17 18:14 10/04/17 11:07 100 MLS/HR Citalopram Hydrobromide (celeXA TAB) 20 mg HS PO 10/03/17 21:00 11/02/17 07:59 10/03/17 21:27 20 MG Nortriptyline HCl (Pamelor Cap) 10 mg HS PO 10/03/17 21:00 11/02/17 07:59 10/03/17 21:28 10 MG Potassium Chloride (Klor-Con Tab) 20 meq DAILY PO 10/03/17 09:00 11/02/17 08:59 10/04/17 08:26 20 MEQ Polyethylene Glycol/ Electrolytes (Golytely Powder) 1 dose Q4H PO 10/03/17 17:00 11/02/17 16:59 10/04/17 08:27 1 DOSE Physical Exam Date Time Temp Pulse Resp B/P (MAP) Pulse Ox O2 Delivery O2 Flow Rate FiO2 10/04/17 08:12 Room Air 10/04/17 08:03 97 Room Air 10/04/17 07:52 36.7 78 20 140/74 (96) 97 Room Air 10/04/17 04:20 36.9 74 20 129/66 (87) 96 Room Air 10/04/17 00:45 Room Air 10/03/17 23:05 37.0 85 18 126/72 (90) 97 Room Air 10/03/17 20:30 Room Air 10/03/17 19:21 36.7 22 138/70 (92) 98 Room Air 10/03/17 18:30 Room Air 10/03/17 15:07 36.8 79 20 127/71 (89) 97 Room Air 10/03/17 11:25 36.5 88 20 155/79 (104) 98 Room Air General Appearance: no apparent distress ENT: hearing grossly normal Neck: supple, no JVD Respiratory: no respiratory distress, no accessory muscle use, + pertinent finding (room air) Cardiovascular: regular rate, rhythm, no edema Abdomen: non tender, soft Neurologic/Psychiatric: alert, normal mood/affect, oriented x 3 Assessment & Plan Problem list: Constipation Hypokalemia Anemia of chronic disease Ovarian cancer with abdominal carcinomatosis Goals of care/advance care planning. Palliative care recs: -Patient is still motivated and physically able to continue on with chemotherapy treatment. -We had a lengthy discussion about palliative vs. hospice care. Patient is interested in following palliative as an outpatient. She will talk with Dr. Tristan Sanchez about a referral. -Patient has all advance directives prepared and taken care of including medical advance directives. Her children are aware that she has these document. -She also has a POLST form singed that was completed by her home-visiting nurse practitioner through the [facility] program through [facility]. -Patient has plans with family for the future months including some trips that she looks forward to. She is hoping to still be well enough to enjoy these. -I made myself available to patient for any further questions/concerns. Thank you kindly for this consult. Please contact me with any further palliative care needs. Total time 70 minutes with >50% of time spent with patient counseling and discussing goals of care/advance care planning.
[2017-10-04] MEDS: TRAMADOL HCL 50 MG TAB PO PRN (12:12)
[2017-10-04 14:44] VITALS: BP 181/70; PULSE 87; TEMP 36.3; O2SAT 97
--- NOTE | 2017-10-04 18:02 | Progress Note ---
Subjective Date of Service: Oct 04, 2017. Subjective Patient feels much better she is having liquid bowel movements she was seen by her oncologist who recommends we proceed forward with feeding her her family is at the bedside and updated Problem List Medical Problems: (1) Colonic obstruction Status: Acute (2) Diabetes Status: Chronic (3) History of ovarian cancer Status: Chronic (4) HTN (hypertension) Status: Chronic (5) Ovarian cancer Status: Chronic Social History Problems: (1) Status post chemotherapy Status: Acute Review of Systems Constitutional: + weakness, No fever, No chills, No fatigue Respiratory: No cough, No shortness of breath Cardiac: No chest pain, No edema Abdomen: + pain, + diarrhea, No nausea, No vomiting Neurologic: No memory loss, No paralysis Psychiatric: + depression symptoms, + anxiety Objective Vital Signs Date Time Temp Pulse Resp B/P (MAP) Pulse Ox O2 Delivery O2 Flow Rate FiO2 10/04/17 16:00 Room Air 10/04/17 14:44 36.3 87 18 181/70 (107) 97 Room Air 10/04/17 08:12 Room Air 10/04/17 08:03 97 Room Air 10/04/17 07:52 36.7 78 20 140/74 (96) 97 Room Air 10/04/17 04:20 36.9 74 20 129/66 (87) 96 Room Air 10/04/17 00:45 Room Air 10/03/17 23:05 37.0 85 18 126/72 (90) 97 Room Air 10/03/17 20:30 Room Air 10/03/17 19:21 36.7 22 138/70 (92) 98 Room Air 10/03/17 18:30 Room Air Physical Exam General Appearance: + mild distress, + thin Eyes: normal inspection, sclerae normal Respiratory/Chest: chest non-tender, lungs clear, normal breath sounds Cardiovascular: regular rate, rhythm, no murmur Abdomen: normal bowel sounds, soft, + distended Extremities: no pedal edema, no calf tenderness Neurologic/Psychiatric: alert, oriented x 3 Assessment and Plan 72 y/o F who was admitted on 10/02 for partial sigmoid colon obstruction she has a history of peritoneal and abdominal carcinomatosis from metastatic ovarian cancer, currently on oral treatment Partial sigmoid colon obstruction: Resolving with laxatives oncology feels this is more a function of her disease rather than any focal issue IVF, advance diet CT AP does not suggest that this is due to a mass or new mets Gen surg saw pt in the ED and does not feel there is anything surgical at this time, if surgery is needed recommend transfer Anemia of chronic disease: Hb baseline is generally around 11, now at 9.7 today in the setting of new chemo agent will continue to follow HypoK:replete HTN: has been mildly elevateddiltiazem, cozaar, lozol Ovarian ca: stable, j I did ask Dr. Turcios to comment on the [address] of abdomen he states that she may be a candidate to change agents but will see her in clinic DM: Has been controlled with poor intake diet controlled Depression/anxiety: She seems anxious over does not want to increase her Pamelor Lovenox and SCDs for DVT proph given likely short duration of admission and low Hb Patient did agree to talk to palliative care while she is here
[2017-10-04 19:27] VITALS: BP 158/75; PULSE 85; TEMP 36.9; O2SAT 99
[2017-10-04] MEDS: ALPRAZOLAM 0.25 MG TAB PO PRN (20:19)
[2017-10-04] MEDS: TOLTERODINE TARTRATE LA 2 MG CAPCR PO SCH (20:21)
[2017-10-04] MEDS: CITALOPRAM 20 MG TAB PO SCH (20:21)
[2017-10-04] MEDS: NORTRIPTYLINE HCL 10 MG CAP PO SCH (20:21)
[2017-10-04 23:55] VITALS: BP 128/63; PULSE 84; TEMP 36.8; O2SAT 96
[2017-10-05] VITALS (7 sets, daily range): BP systolic 123–171; BP diastolic 66–82; PULSE 73–98; TEMP 36.7–37.1; O2SAT 95–99
[2017-10-05] MEDS: NSS + 20MEQ KCL 1000ML 1,000 ML IV SCH ×2 (06:09→16:05)
[2017-10-05] MEDS: LEVOTHYROXINE 88 MCG TAB PO SCH (06:10)
[2017-10-05] MEDS: FLUTICASONE PROPIONATE NA SPR 16 GM BTL NAE SCH (08:43)
[2017-10-05] MEDS: DILTIAZEM HCL 300 MG CAPCR PO SCH (08:44)
[2017-10-05] MEDS: CALCIUM 600MG + VIT D 400 IU TAB PO SCH ×3 (08:44→20:16)
[2017-10-05] MEDS: LACTOBACILLUS ACIDOPHILUS (FLORANEX) TAB PO SCH (08:45)
[2017-10-05] MEDS: INDAPAMIDE 1.25 MG TAB PO SCH (08:45)
[2017-10-05] MEDS: LOSARTAN POTASSIUM 50 MG TAB PO SCH (08:45)
[2017-10-05] MEDS: MAGNESIUM OXIDE 400 MG TAB PO SCH ×3 (08:45→20:16)
[2017-10-05] MEDS: POTASSIUM CHLORIDE 20 MEQ TABCR PO SCH (08:45)
[2017-10-05] MEDS: GABAPENTIN 400 MG CAP PO SCH ×3 (08:46→20:16)
[2017-10-05] MEDS: MULTIVITAMIN TAB PO SCH (08:46)
[2017-10-05] MEDS: PANTOprazole SOD 40 MG TAB PO SCH (08:46)
[2017-10-05] MEDS: OMEGA-3 (PURIFIED FISH OIL) 1 GM CAP PO SCH ×2 (08:46→20:16)
[2017-10-05] MEDS: CHOLECALCIFEROL 1000 INTER.UNIT TAB PO SCH (08:46)
[2017-10-05] MEDS: VITAMIN B COMPLEX TAB PO SCH (08:46)
[2017-10-05] MEDS: TOCOPHERYL, DL-ALPHA 100 INTERUNIT CAP PO SCH (08:46)
[2017-10-05] MEDS: ASCORBIC ACID 500 MG TAB PO SCH (08:46)
[2017-10-05] MEDS: DOCUSATE SODIUM 100 MG CAP PO SCH (08:47)
[2017-10-05] MEDS ORDERED: NURSING VERBAL MED ORDER ONE ×2 (12:15→15:00)
--- NOTE | 2017-10-05 14:08 | DIAGNOSTIC IMAGING REPORT ---
ABDOMEN 2 VIEWS CLINICAL HISTORY: Evaluate for obstruction. Ovarian carcinoma. COMPARISON STUDY: CT of the abdomen and pelvis and abdominal series October 02, 2017. FINDINGS: There is no free air. There is a suspected trace right pleural effusion. Elevation of the right hemidiaphragm is unchanged. Mild small large bowel dilatation has slightly improved. Fluid-filled bowel loops are typically occult by radiography. IMPRESSION: 1. No free air. 2. Persistent, but slightly improved, colonic dilatation. Electronically signed by: Rodrigo Colon M.D. 10/05/2017 2:07 PM Dictated Date/Time: 10/05/2017 2:03 PM
--- NOTE | 2017-10-05 16:30 | Progress Note ---
Subjective Date of Service: Oct 05, 2017. Subjective pt is not feeling much better but has had some liquid bowel movements, she did have fleeting abdominal pain that has since resolved, I have viewed abd x ray and it shows persistent mild colonic obstruction Problem List Medical Problems: (1) Colonic obstruction Status: Acute (2) Diabetes Status: Chronic (3) History of ovarian cancer Status: Chronic (4) HTN (hypertension) Status: Chronic (5) Ovarian cancer Status: Chronic Social History Problems: (1) Status post chemotherapy Status: Acute Review of Systems Constitutional: + weakness, + fatigue, No fever, No chills Respiratory: No cough, No shortness of breath Cardiac: No chest pain Abdomen: + pain, + nausea, + diarrhea, No vomiting Musculoskeletal: No joint pain, No muscle pain Female : No dysuria, No urinary frequency, No hematuria Psychiatric: + depression symptoms, + anxiety Objective Vital Signs Date Time Temp Pulse Resp B/P (MAP) Pulse Ox O2 Delivery O2 Flow Rate FiO2 10/05/17 15:56 37.0 79 16 146/82 (103) 97 Room Air 10/05/17 11:06 36.8 82 16 148/67 (94) 99 Room Air 10/05/17 10:35 Room Air 10/05/17 07:11 36.9 73 18 127/66 (86) 96 Room Air 10/05/17 04:54 36.7 78 16 123/75 (91) 96 Room Air 10/05/17 00:00 97 Room Air 10/04/17 23:55 36.8 84 20 128/63 (84) 96 Room Air 10/04/17 19:27 36.9 85 20 158/75 (102) 99 Physical Exam General Appearance: WD/WN, + mild distress Eyes: normal inspection, sclerae normal Respiratory/Chest: chest non-tender, lungs clear, normal breath sounds Cardiovascular: regular rate, rhythm, no murmur Abdomen: + abnormal bowel sounds, + guarding, + tenderness Extremities: no pedal edema, no calf tenderness Neurologic/Psychiatric: alert, oriented x 3 Assessment and Plan 72 y/o F who was admitted on 10/02 for partial sigmoid colon obstruction she has a history of peritoneal and abdominal carcinomatosis from metastatic ovarian cancer, currently on oral treatment Partial sigmoid colon obstruction: is producing liquid stools, oncology feels this is more a function of her disease rather than any focal issue IVF, advance diet is being tolerated but may have more distension CT AP does not suggest that this is due to a mass or new mets, repeat xray not much better Gen surg saw pt in the ED and does not feel there is anything surgical at this time, if surgery is needed recommend transfer Anemia of chronic disease: in the setting of new chemo agent is not symptomatic from mild change from baseline HypoK:replete HTN: elevated due to anxiety, continue diltiazem, cozaar, lozol Ovarian ca: stable, Dr. Turcios did speak to patient and will follow up in clinic DM: continues to be controlled with poor intake diet controlled Depression/anxiety: She seems anxious but does not want to increase her Pamelor Lovenox and SCDs for DVT proph Patient did agree to talk to palliative care while she is here
[2017-10-05] MEDS: TOLTERODINE TARTRATE LA 2 MG CAPCR PO SCH (20:16)
[2017-10-05] MEDS: NORTRIPTYLINE HCL 10 MG CAP PO SCH (20:16)
[2017-10-05] MEDS: CITALOPRAM 20 MG TAB PO SCH (20:16)
[2017-10-05] MEDS: ALPRAZOLAM 0.25 MG TAB PO PRN (20:23)
[2017-10-05] MEDS ORDERED: ENOXAPARIN 40 MG/0.4 ML SYR SQ SCH (21:00)
[2017-10-06] MEDS: NSS + 20MEQ KCL 1000ML 1,000 ML IV SCH (01:08)
[2017-10-06] MEDS: LEVOTHYROXINE 88 MCG TAB PO SCH (06:11)
[2017-10-06 06:57] LABS: HEMATOCRIT 26.2 % (37-47); HEMOGLOBIN 8.6 g/dL (12.0-16.0); MEAN CELL VOLUME 92.9 fL (80-100); MEAN CORPUSCULAR HEMOGLOBIN 30.5 pg (25-34); MEAN CORPUSCULAR HGB CONC 32.8 g/dl (32-36); MEAN PLATELET VOLUME 8.1 fL (7.4-10.4); PLATELET COUNT 453 K/uL (130-400); RED CELL DISTRIBUTION WIDTH CV 14.8 % (11.5-14.5); RED CELL DISTRIBUTION WIDTH SD 48.6 fL (36.4-46.3); WHITE BLOOD COUNT 3.62 K/uL (4.8-10.8)
[2017-10-06 07:31] LABS: CALCIUM 8.3 mg/dl (8.5-10.1); CREATININE 0.77 mg/dl (0.60-1.20)
[2017-10-06 07:50] VITALS: BP 144/89; PULSE 75; TEMP 36.8; O2SAT 96
[2017-10-06] MEDS: VITAMIN B COMPLEX TAB PO SCH (08:00)
[2017-10-06] MEDS: TOCOPHERYL, DL-ALPHA 100 INTERUNIT CAP PO SCH (08:00)
[2017-10-06] MEDS: DOCUSATE SODIUM 100 MG CAP PO SCH (08:00)
[2017-10-06] MEDS: OMEGA-3 (PURIFIED FISH OIL) 1 GM CAP PO SCH (08:00)
[2017-10-06] MEDS: ASCORBIC ACID 500 MG TAB PO SCH (08:00)
[2017-10-06] MEDS: CHOLECALCIFEROL 1000 INTER.UNIT TAB PO SCH (08:00)
[2017-10-06] MEDS: MULTIVITAMIN TAB PO SCH (08:00)
[2017-10-06] MEDS: DILTIAZEM HCL 300 MG CAPCR PO SCH (08:14)
[2017-10-06] MEDS: CALCIUM 600MG + VIT D 400 IU TAB PO SCH (08:14)
[2017-10-06] MEDS: FLUTICASONE PROPIONATE NA SPR 16 GM BTL NAE SCH (08:14)
[2017-10-06] MEDS: INDAPAMIDE 1.25 MG TAB PO SCH (08:15)
[2017-10-06] MEDS: LOSARTAN POTASSIUM 50 MG TAB PO SCH (08:15)
[2017-10-06] MEDS: POTASSIUM CHLORIDE 20 MEQ TABCR PO SCH (08:15)
[2017-10-06] MEDS: LACTOBACILLUS ACIDOPHILUS (FLORANEX) TAB PO SCH (08:15)
[2017-10-06] MEDS: MAGNESIUM OXIDE 400 MG TAB PO SCH (08:15)
[2017-10-06] MEDS: GABAPENTIN 400 MG CAP PO SCH (08:16)
[2017-10-06] MEDS: PANTOprazole SOD 40 MG TAB PO SCH (08:16)
--- NOTE | 2017-10-06 10:37 | Discharge Instructions ---
Discharge Instructions Date of Service Oct 06, 2017. Admission Reason for Admission: Colonic Obstruction Discharge Discharge Diagnosis / Problem: partial colonic obstruction Discharge Goals Goal(s): Diagnostic testing, Therapeutic intervention Activity Recommendations Activity Limitations: as noted below Lifting Limitations: gradually increase as tolerated .Low-Residue/Low-Fiber Diet A low-residue/low-fiber diet is for people who need to rest their intestinal tract. Chemotherapy treatments, radiation treatments, and surgery can cause trouble with digestion, especially for foods that are high in fiber. A low-residue/low-fiber diet limits the amount of food waste that has to move through the large intestine. This diet may help control diarrhea and abdominal cramping and make eating more enjoyable. Points to Keep in Mind * Avoid any food made with seeds, nuts, or raw or dried fruit. * Avoid whole-grain breads and cereals. Purchase products made from refined flour. * Do not eat raw fruits or vegetables. Remove skins before cooking. * Limit milk and milk products to 2 cups a day. Use lactose-reduced milk or lactase enzymes if you are lactose intolerant. * Limit fats since these can increase stool bulk. * Avoid tough, fibrous meats with gristle. Instructions / Follow-Up Instructions / Follow-Up Please keep hydrated follow up with Dr Neff on sunday 10/08 Current Hospital Diet Patient's current hospital diet: Low Fiber Diet Discharge Diet Recommended Diet: Low Fiber Diet Pending Studies Studies pending at discharge: no Medical Emergencies . Who to Call and When: Medical Emergencies: If at any time you feel your situation is an emergency, please call 911 immediately. . Non-Emergent Contact Non-Emergency issues call your: Oncologist . . "Provider Documentation" section prepared by Carlos Anderson. . VTE Core Measure Inpt VTE Proph given/why not?: Enoxaparin (Lovenox)SQ
[2017-10-06 10:52] VITALS: BP 144/89; PULSE 75; TEMP 36.8; O2SAT 96
--- NOTE | 2017-10-06 15:17 | Discharge Summary ---
"Discharge Summary Date of Service Oct 06, 2017. Discharge Summary Admission Date: Oct 02, 2017 at 15:44 Discharge Date: Oct 06, 2017 Discharge Disposition: Home Principal Diagnosis: peritoneal carcinomatosis with colic partial obstruction Problems/Secondary Diagnoses: (1) Diabetes Status: Chronic (2) History of ovarian cancer Status: Chronic (3) HTN (hypertension) Status: Chronic (4) Ovarian cancer Status: Chronic Immunizations: Have You Had Influenza Vaccine: Yes Influenza Vaccine Date: May 20, 2015 History of Tetanus Vaccine?: Yes Tetanus Immunization Date: May 10, 2015 History of Pneumococcal: Yes Pneumococcal Date: Oct 11, 2014 History of Hepatitis B Vaccine: Unknown Medication Reconciliation Continued Medications: Albuterol Hfa (Ventolin Hfa) 200 Puffs/46527 Mcg Aers 2-4 PUFFS INH Q6H PRN for SOB/Wheezing, INHALER Albuterol Sulf (Proventil 0.083% 2.5MG/3ML) 2.5 Mg/3 Ml Nebu 2.5 MG INH QID PRN for Wheezing Alprazolam (Xanax) 0.5 Mg Tab 0.25 MG PO BID PRN for Anxiety, TAB Ascorbic Acid (Ascorbic Acid) 500 Mg Tab 500 MG PO DAILY, TAB B-Complex Vitamins (Vitamin B Complex) 1 Tab Tab 1 TAB PO DAILY Calcium Citrate-Vitamin D ([place]-Citrate Plus Vitamin) 1 Tab Tab 1 TAB PO TID Cholecalciferol (Vitamin D3) 1,000 Unit Tab 1 TAB PO DAILY, TAB Citalopram Hydrobromide (Citalopram Hydrobromide) 20 Mg Tab 1 TAB PO DAILY, TAB Diclofenac Sodium (Topical) (Voltaren 1% Top Gel) 1 % Gel 1 APPLN TOP BID PRN for PRN Diltiazem Hcl Coated Beads (Cartia Xt) 300 Mg Cap 1 CAP PO DAILY Docusate Sodium (Colace) 100 Mg Cap 2 CAP PO DAILY, CAP Fish Oil ([place]-3) 1 Ea Cap 1 CAP PO BID, CAP Fluticasone Propionate (Nasal) (Flonase Allergy Relief) 50 Mcg/Act Spr 2 SPRAYS AASD DAILY Gabapentin (Neurontin) 400 Mg Cap 400 MG PO TID, CAP Indapamide (Indapamide) 2.5 Mg Tab 1 TAB PO DAILY, TAB Levothyroxine Sodium (Levothyroxine Sodium) 88 Mcg Tab 1 TAB PO DAILY, TAB Losartan Potassium (Cozaar) 100 Mg Tab 100 MG PO DAILY, TAB Magnesium Oxide (Mg Supplement (Mag-200) 200 Mg Tab 1 TAB PO TID Multivitamin (Multivitamin) Tab 1 TAB PO DAILY, TAB Nortriptyline (Pamelor) 10 Mg Cap 10 MG PO DAILY, CAP Nystatin/Triamcinolone (Mycogen ||) Oint 1 APPLN TOP TID PRN for PRN Omeprazole (Prilosec) 20 Mg Capcr 20 MG PO DAILY, CAP Ondansetron (Ondansetron HCl) 8 Mg Tab 1 TAB PO UD Potassium Chloride (Potassium Chloride) 20 Meq Pow 1 DOSE PO DAILY Probiotic Product (Probiotic) 1 Cap Cap 1 CAP PO DAILY Senna (Senokot) 8.6 Mg Tab 1 TAB PO PRN for Constipation, TAB Tolterodine Tartrate (Detrol LA) 2 Mg Capcr 1 CAP PO QPM, CAP Tramadol (Ultram) 50 Mg Tab 50 MG PO BID PRN for Pain, TAB Triamcinolone Acet (Aristocort 0.1%) 90 Appln/30 Gm Cr 1 APPLN TOP UD Vitamin E (Vitamin E) 100 Unit Tab 1 TAB PO DAILY Discharge Exam Review of Systems: Constitutional: No fever, No chills Respiratory: No cough, No shortness of breath, No dyspnea on exertion Cardiovascular: No chest pain, No orthopnea, No edema Abdomen: + diarrhea, No pain, No nausea, No constipation Physical Exam: General Appearance: WD/WN, + mild distress Eyes: normal inspection, sclerae normal Respiratory/Chest: chest non-tender, lungs clear Cardiovascular: regular rate, rhythm, no murmur Abdomen / GI: normal bowel sounds, non tender, soft Hospital Course 72 y/o F who was admitted on 10/02 for partial sigmoid colon obstruction she has a history of peritoneal and abdominal carcinomatosis from metastatic ovarian cancer, currently on oral chemotherapy treatment Partial sigmoid colon obstruction: is producing liquid partially formed stools, oncology feels this is more a function of her disease rather than any focal issue tolerated advancing diet she feel comfortable going home CT AP does not suggest that this is due to a mass or new mets causing colonic issues, repeat xray 10/05 not much better but not much worse Gen surg saw pt in the ED and does not feel there is anything surgical at this time, if surgery is needed recommend transfer Anemia of chronic disease: in the setting of new chemo agent is not symptomatic from mild change from baseline HypoK:replete HTN: elevated due to anxiety, continue diltiazem, cozaar, lozol Ovarian ca: stable, Dr. Turcios did speak to patient and will follow up in clinic this week DM: continues to be controlled Depression/anxiety: She seems anxious but does not want to increase her Pamelor Patient did agree to talk to palliative care while she is here Total Time Spent: Greater than 30 minutes This includes examination of the patient, discharge planning, medication reconciliation, and communication with other providers. Discharge Instructions Please refer to the electronic Patient Visit Report (Discharge Instructions) for additional information."
== END 2017-10-06 11:29 | disposition home or self-care (01) | DRG 755 ==
LOC: C.EDB 09:46 → C.MSW 15:44 → ENRESERV 15:56 → C.4E 20:05
PROVIDERS: ADMIT Family Medicine; ATTEND Internal Medicine
DX: C56.9 Malignant neoplasm of unspecified ovary (principal); C80.0 Disseminated malignant neoplasm, unspecified; K56.600 Partial intestinal obstruction, unspecified as to cause; E87.6 Hypokalemia; E11.9 Type 2 diabetes mellitus without complications; I10 Essential (primary) hypertension; D63.8 Anemia in other chronic diseases classified elsewhere; F32.9 Major depressive disorder, single episode, unspecified; F41.9 Anxiety disorder, unspecified; Z79.899 Other long term (current) drug therapy; Z88.1 Allergy status to other antibiotic agents; Z88.2 Allergy status to sulfonamides

== ENCOUNTER → 2017-10-29 | Outpatient (CLI) | payer BC ==
[~2017-10-29] MED LIST changes: +ALBINS/ INH; -ALBU0.08 INH; -ALBUAER19 INH; +ALPR0.25 PO; -ASCA500 PO; +ASPITAB71 PO; -B-COCAP2 PO; +CALC1TAB25 PO; -CHOL1000 PO; +CITA20TA4 PO; -CLC100 PO; -CLX20 PO; -CRDCD300 PO; +DICL1GEL12 TOP; +DILT300C21 PO; +DOCU-94 PO; +ETOP50CA PO; +FLUT0.15 NAE; +INDA2.5T PO; +LOSA50TA54 PO; -LOSA50TA6 PO; -MAGN1TAB16 PO; +MISCCAP80 PO; +MULT-506 PO; -MULT1CHW42 PO; +NYSTOIN5 TOP; +OMEG10007 PO; +ONDA-63 PO; +SENN-61 PO; -SOLI10TA2 PO; +SOLI5TAB2 PO; +TRMCR130WC TOP; +VNTHFA/IN INH; -XNX25 PO
--- NOTE | 2017-10-29 12:40 | DIAGNOSTIC IMAGING REPORT ---
CHEST 2 VIEWS ROUTINE CLINICAL HISTORY: R05 Cough dyspnea COMPARISON STUDY: 10/02/2017 FINDINGS: Chronic elevation right hemidiaphragm. Stable nodularity left midlung. Stable fibrotic change right and to lesser extent left pulmonary apex. IMPRESSION: Chronic change. No acute process. Stable nodularity left midlung. The above report was generated using voice recognition software. It may contain grammatical, syntax or spelling errors. Electronically signed by: Trent Goins M.D. 10/29/2017 12:39 PM Dictated Date/Time: 10/29/2017 12:37 PM
== END | disposition home or self-care (01) ==
LOC: C.RAD1850 12:22
PROVIDERS: ATTEND Physician Assistant Medical
DX: R05 Cough (principal)